=== PATIENT | male | born 1935 | race Hispanic/Latino ===

== ENCOUNTER 2016-08-28 10:20 | Inpatient (IN) | payer MEDICARE, BC ==
[2016-08-28 10:36] VITALS: BMI 28.0
--- NOTE | 2016-08-28 10:52 | ED PDOC ---
Arrival/HPI - General Chief Complaint: Weakness/Neurological Deficit Time Seen by Provider: 08/28/16 10:51 Historian: Patient, Family - History of Present Illness Narrative History of Present Illness (Text): 08/28/16 10:51 A 80 year old male, whose past medical history includes dementia, was brought into the emergency department by family complaining of generalized weakness for the past few days. notes a loss of appetite since yesterday. On evaluation , patient is alert and oriented to name only. states patients mental status is normal to baseline. Patient denies any fever, nausea, vomiting, diarrhea, abdominal pain, chest pain, shortness of breath, headache or any other complaints. PMD: Dr. Jerry Time/Duration: Other (few days) Symptom Course: Unchanged Quality: Other Context: Home Past Medical History - Provider Review Nursing Documentation Reviewed: Yes - Infectious Disease Hx of Infectious Diseases: None - Tetanus Immunization Tetanus Immunization: Up to Date - Cardiac Hx Cardiac Disorders: Yes - Pulmonary Hx Respiratory Disorders: No - Neurological Hx Neurological Disorder: Yes Hx Dementia: Yes Hx Seizures: Yes (NEW ONSET 03-09-16) Hx Transient Ischemic Attacks (TIA): Yes - HEENT Hx HEENT Disorder: Yes (LEFT EYE -DECREASED VISION. "HOLE IN RETINA"HAD SX) Hx Deafness: Yes (BILATERAL HEARING AIDES) - Renal Hx Renal Disorder: No - Endocrine/Metabolic Hx Endocrine Disorders: No - Hematological/Oncological Hx Blood Disorders: Yes Hx Cancer: Yes (COLON CA WITH COLON RESECTION NO RADIATION OR CHEMO) - Integumentary Hx Dermatological Disorder: No - Musculoskeletal/Rheumatological Hx Falls: Yes - Gastrointestinal Hx Gastrointestinal Disorders: Yes (COLON CA WITH COLON RESECTION) - Genitourinary/Gynecological Hx Genitourinary Disorders: No - Psychiatric Hx Psychophysiologic Disorder: Yes Hx Depression: Yes Hx Substance Use: No - Surgical History Other/Comment: colon resection, pacemaker insertion - Anesthesia Hx Anesthesia: Yes Hx Anesthesia Reactions: No Hx Malignant Hyperthermia: No - Suicidal Assessment Feels Threatened In Home Enviroment: No Family/Social History - Physician Review Nursing Documentation Reviewed: Yes Family/Social History: No Known Family HX Smoking Status: Former Smoker Hx Alcohol Use: No Hx Substance Use: No Hx Substance Use Treatment: No Allergies/Home Meds Allergies/Adverse Reactions: Allergies No Known Allergies Allergy (Verified 08/28/16 10:47) Home Medications: Home Meds Medication Instructions Recorded Confirmed Aspirin [Aspirin Chewable] 81 mg PO DAILY 01/02/15 05/19/16 Cholecalciferol (Vitamin D3) 1,000 iu PO DAILY 01/02/15 05/19/16 [Vitamin D3] Donepezil HCl 21 mg PO DAILY 01/02/15 05/19/16 Memantine HCl [Namenda] 28 mg PO DAILY 06/01/15 05/19/16 Lmfol Ca/Acetyl/Mb12/Algal Oil 1 tab PO DAILY 03/10/16 05/19/16 [Cerefolin Nac Caplet] Docusate [Colace] 100 mg PO DAILY 05/19/16 05/19/16 Vit C/Vit E/Lutein/Min/[place]-3 1 tab PO BID 05/19/16 05/19/16 [Ocuvite Softgel] levETIRAcetam [Keppra] 250 mg PO BID 05/19/16 05/19/16 Physical Exam - Physical Exam Narrative Physical Exam (Text): - Review of Systems Constitutional: (+) Generalized weakness absent: Weight Change, Fevers Eyes: Normal ENT: Normal Respiratory: Normal absent: SOB, Cough, Sputum Cardiovascular: Normal absent: Chest pain, Palpitations, Syncope Gastrointestinal: (+) Loss of appetite absent: Abdominal pain, Diarrhea, Nausea , Vomiting Genitourinary: Normal. absent: Dysuria, Frequency, Hematuria Musculoskeletal: Normal. absent: Arthralgias, Back Pain, Neck Pain Skin: Normal Neurological: Normal absent: Focal Weakness Endocrine: Normal Hemo/Lymphatic: Normal Psychiatric: Normal - Physical exam Patient appears age appropriate, speaking full sentences without difficulty - Systems Exam Head: Present: Atraumatic, Normocephalic Pupils: Present: PERRL Extraocular Muscles: Present: EOMI Conjunctiva: Present: Normal Mouth: Present: Moist Mucous Membranes Neck: Present: Normal Range of Motion. No: MIDLINE TENDERNESS, Paraspinal Tenderness Respiratory/Chest: Present: Clear to Auscultation, Good Air Exchange. No: Respiratory Distress, Accessory Muscle Use, Tachypneic Cardiovascular: Present: Regular Rate and Rhythm, Normal S1, S2, Peripheral Pulses Present. No: Murmurs Abdomen: Present: Normal Bowel Sounds, No: Tenderness, Peritoneal Signs, Rebound, Guarding, Distention Back: Present: Normal Inspection. No: Midline Tenderness, Paraspinal Tenderness Upper Extremity: Present: Normal Inspection. No: Cyanosis, Edema Lower Extremity: Present: Normal Inspection. No: Edema Neurological: Present: GCS=15, Speech Normal, cranial nerves II through XII fully intact with no cerebellar abnormality, neuro-sensory fully intact. No focal neurological deficits. Skin: Present: Warm, Dry, Normal Color. No: Rashes Lymphatic: Present: OX3, NI, NC Psychiatric: Present: Alert and oriented to name only Vital Signs Reviewed: Yes Vital Signs Temp Pulse Resp BP Pulse Ox 08/28/16 14:00 81 16 148/74 98 08/28/16 12:14 73 16 140/80 96 08/28/16 10:34 98.3 F 81 16 142/93 H 97 Temperature: Afebrile Blood Pressure: Hypertensive Pulse: Regular Respiratory Rate: Normal Appearance: Positive for: Well-Appearing, Non-Toxic, Comfortable Pain Distress: None Mental Status: No: Alert and Oriented X 3 (Alert and oriented to name only) Finger Stick Blood Glucose: 105 Medical Decision Making ED Course and Treatment: 08/28/16 10:51 Impression: A 80 year old male with generalized weakness and a loss of appetite. Patient has a history of dementia. He is alert and oriented to name only, which is normal to baseline. No acute findings on PE, no focal neurological deficits. Plan: -- Head CT -- Chest xray -- EKG -- Labs -- Blood and Urine culture -- Urinalysis -- IV fluids -- Reassess and disposition Progress Notes: EKG shows NSR at [address]-segment elevations, normal intervals. Interpreted by me. Report Date : 08/28/2016 11:57:09 PROCEDURE: CT HEAD WITHOUT CONTRAST. Dictator : Chirag Hines MD IMPRESSION: No intracranial mass, hemorrhage or evidence of acute infarct. Chronic microvascular ischemic change. 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 Report Date : 08/28/2016 12:12:15 Procedure: Chest xray Dictator : Chirag Hines MD IMPRESSION: Small left pleural effusion versus chronic pleural thickening. No infiltrate. Permanent pacemaker 08/28/16 16:12 Patient's urinalysis shows possible UTI. Leukocytosis 12,[address] Hopson, aware of and agrees with med/surg admission pt and family informed as well - Lab Interpretations Lab Results: 08/28/16 11:10 08/28/16 11:10 Lab Results 08/28/16 15:00: Urine Color Yellow, Urine Appearance Clear, Urine pH 6.0, Ur Specific Walsh 1.025, Urine Protein Trace H, Urine Glucose (UA) Negative, Urine Ketones >=80, Urine Blood Large H, Urine Nitrate Negative, Urine Bilirubin Small H, Urine Urobilinogen 1.0 H, Ur Leukocyte Esterase Negative, Urine RBC 20 - 25, Urine WBC 0 - 2, Ur Epithelial Cells 0 - 2, Amorphous Sediment Few, Urine Bacteria Mod 08/28/16 11:10: WBC 12.6 H D, RBC 5.08, Hgb 16.0, Hct 46.3, MCV 91.1, MCH 31.5, MCHC 34.6, RDW 12.8, Plt Count 143, MPV 8.6, Gran % 85.7 H, Lymph % (Auto) 7.0 L , [place] % (Auto) 7.1 H, Eos % (Auto) 0.1 L, Baso % (Auto) 0.1, Gran # 10.80 H, Lymph # 0.9 L, [place] # 0.9 H, Eos # 0.0, Baso # 0.01, PT 12.0 H, INR 1.11 H, APTT 27.8, Sodium 138, Potassium 4.3, Chloride 100, Carbon Dioxide 26, Anion Gap 16, BUN 20, Creatinine 1.1, Est GFR ( Amer) > 60, Est GFR (Non-Af Amer) > 60, Random Glucose 107, Calcium 9.7, Total Bilirubin 1.3, AST 25, ALT 12 , Alkaline Phosphatase 101, Lactate Dehydrogenase 438, Total Creatine Kinase 112 , Troponin I < 0.01, Total Protein 8.0, Albumin 4.2, Globulin 3.8, Albumin/ Globulin Ratio 1.1 I have reviewed the lab results: Yes - RAD Interpretation Radiology Orders: 08/28/16 10:57 HEAD W/O CONTRAST [CT] Stat 08/28/16 10:58 CHEST PORTABLE [RAD] Stat - Medication Orders Current Medication Orders: Discontinued Medications Sodium Chloride (Sodium Chloride 0.9%) 500 mls @ 1,000 mls/hr IV .Q30M STA Stop: 08/28/16 11:27 Last Admin: 08/28/16 11:18 Dose: 1,000 MLS/HR eMAR Start Stop Document 08/28/16 11:18 CARL (Rec: 08/28/16 11:19 CARL [id number]) Intravenous Solution Start Date 08/28/16 Start Time 11:18 End Date 08/28/16 End time 12:18 Total Infusion Time 60 Ceftriaxone Sodium (Rocephin 1 Gram Ivpb) 100 mls @ 200 mls/hr IV STAT STA PRN Reason: Protocol Stop: 08/28/16 16:08 - Scribe Statement The provider has reviewed the documentation as recorded by the Scribe Ann Young Provider Scribe Attestation: All medical record entries made by the Scribe were at my direction and personally dictated by me. I have reviewed the chart and agree that the record accurately reflects my personal performance of the history, physical exam, medical decision making, and the department course for this patient. I have also personally directed, reviewed, and agree with the discharge instructions and disposition. Disposition/Present on Arrival - Present on Arrival Any Indicators Present on Arrival: No History of DVT/PE: No History of Uncontrolled Diabetes: No Urinary Catheter: No History of Decub. Ulcer: No History Surgical Site Infection Following: None - Disposition Have Diagnosis and Disposition been Completed?: Yes Diagnosis: UTI (urinary tract infection) Disposition: HOSPITALIZED Disposition Time: 16:14 Patient Plan: Admission Condition: FAIR
[2016-08-28] MEDS ORDERED: Sodium Chloride 0.9% 500 ML IV STA (10:58)
[2016-08-28 11:31] LABS: ADD MANUAL DIFF? NO
[2016-08-28 11:42] LABS: BASO # 0.01 K/mm3 (0.0-2.0); BASO % 0.1 % (0.0-3.0); EOS % 0.1 % (1.5-5.0); GRAN % 85.7 % (50.0-68.0); HEMATOCRIT 46.3 % (42.0-52.0); LYMPH # 0.9 (1.2-3.4); MEAN CELL VOLUME 91.1 fL (80.0-105.0); MEAN CORPUSCULAR HEMOGLOBIN 31.5 pg (25.0-35.0); MEAN CORPUSCULAR HGB CONC 34.6 g/dl (31.0-37.0); MEAN PLATELET VOLUME 8.6 fl (7.0-11.0); MONO # 0.9 (0.1-0.6); MONO % 7.1 % (1.0-6.0); PLATELET COUNT 143 10^3/uL (120.0-450.0); RED CELL DISTRIBUTION WIDTH 12.8 % (11.5-14.5); WHITE BLOOD COUNT 12.6 10^3/ul (4.5-11.0)
[2016-08-28 11:47] LABS: ALB/GLOB RATIO 1.1 (1.1-1.8); ALKALINE PHOSPHATASE 101 U/L (38-133); ALT/SGPT 12 U/L (7-56); AST/SGOT 25 U/L (15-59); BILIRUBIN,TOTAL 1.3 mg/dL (0.2-1.3); BLOOD UREA NITROGEN 20 mg/dL (7-21); CALCIUM 9.7 mg/dL (8.4-10.5); CARBON DIOXIDE 26 mmol/L (21-33); CHLORIDE 100 mmol/L (98-107); GFR AFRICAN-AMERICAN > 60; GLUCOSE,RANDOM 107 mg/dL (70-110); POTASSIUM 4.3 mmol/L (3.6-5.0); SODIUM 138 mmol/L (132-148)
[2016-08-28 11:53] LABS: INR 1.11 (0.93-1.08); PARTIAL THROMBOPLASTIN TIME 27.8 Seconds (23.7-30.8)
--- NOTE | 2016-08-28 11:58 | CT ---
PROCEDURE: CT HEAD WITHOUT CONTRAST. HISTORY: MCGUIRE x2 weeks COMPARISON: 05/19/2016 TECHNIQUE: Axial computed tomography images were obtained through the head/brain without intravenous contrast. Radiation dose: Total exam DLP = 790.28 mGy-cm. FINDINGS: HEMORRHAGE: No intracranial hemorrhage. BRAIN: No mass effect or edema. Mild age-appropriate diffuse cerebral atrophy. Old bilateral basal ganglia lacunar infarcts. Old left thalamic lacunar infarct. Periventricular and patchy and confluent deep white matter lucency consistent with age-related microvascular ischemic change. VENTRICLES: Unremarkable. No hydrocephalus. CALVARIUM: Unremarkable. PARANASAL SINUSES: Unremarkable as visualized. No significant inflammatory changes. MASTOID AIR CELLS: Unremarkable as visualized. No inflammatory changes. OTHER FINDINGS: None. IMPRESSION: No intracranial mass, hemorrhage or evidence of acute infarct. Chronic microvascular ischemic change. 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
[2016-08-28 12:03] LABS: TROPONIN I < 0.01 ng/mL
--- NOTE | 2016-08-28 12:14 | RAD ---
HISTORY: cough COMPARISON: 05/19/2026 FINDINGS: LUNGS: No active pulmonary disease. PLEURA: Small left pleural effusion versus pleural thickening. Right costophrenic angle clear. CARDIOVASCULAR: Normal heart size. Permanent pacemaker. No congestive change. OSSEOUS STRUCTURES: No significant abnormalities. VISUALIZED UPPER ABDOMEN: Normal. OTHER FINDINGS: None. IMPRESSION: Small left pleural effusion versus chronic pleural thickening. No infiltrate. Permanent pacemaker
--- NOTE | 2016-08-28 12:40 | CARD ---
APPROVED REPORT EKG Measurement Heart [id number] <Conclusion> Normal sinus rhythm Normal ECG
[2016-08-28 15:18] LABS: URINE BILIRUBIN SMALL (NEGATIVE); URINE BLOOD LARGE (NEGATIVE); URINE GLUCOSE (UA) NEGATIVE (NEGATIVE); URINE KETONE >=80 mg/dL (NEGATIVE); URINE LEUKOCYTE ESTERASE NEGATIVE Leu/uL (NEGATIVE); URINE PROTEIN TRACE mg/dL (<30 mg/dL)
[2016-08-28 15:21] LABS: URINE APPEARANCE CLEAR (CLEAR); URINE COLOR YELLOW (YELLOW)
[2016-08-28 15:34] LABS: URINE AMORPHOUS SEDIMENT FEW; URINE BACTERIA MOD (NEG); URINE EPITHELIAL CELLS 0 - 2 /hpf (0-5); URINE RBC 20 - 25 /hpf (0-2); URINE WBC 0 - 2 /hpf (0-6)
[2016-08-28] MEDS ORDERED: cefTRIAXone 1 gm 100 ML IV STA (15:39)
[2016-08-29 08:15] LABS: ADD MANUAL DIFF? NO
[2016-08-29 08:17] LABS: BASO # 0.02 K/mm3 (0.0-2.0); BASO % 0.2 % (0.0-3.0); EOS # 0.1 (0.0-0.7); EOS % 1.1 % (1.5-5.0); GRAN # 5.79 (1.4-6.5); GRAN % 67.9 % (50.0-68.0); HEMATOCRIT 42.7 % (42.0-52.0); LYMPH # 1.5 (1.2-3.4); LYMPH % 17.8 % (22.0-35.0); MEAN CORPUSCULAR HEMOGLOBIN 31.1 pg (25.0-35.0); MEAN CORPUSCULAR HGB CONC 34.2 g/dl (31.0-37.0); MEAN PLATELET VOLUME 8.6 fl (7.0-11.0); MONO # 1.1 (0.1-0.6); PLATELET COUNT 133 10^3/uL (120.0-450.0); WHITE BLOOD COUNT 8.5 10^3/ul (4.5-11.0)
[2016-08-29] MEDS ORDERED: cefTRIAXone 1 gm 100 ML IVPB SCH (10:00)
--- NOTE | 2016-08-29 16:25 | CP.PCM.CON ---
History of Present Illness - History of Present Illness History of Present Illness: 80 year old male with PMH of dementia, S/P pacemaker placement, history of seizures, colon cancer S/P colonic resection, history of depression was brought in to [facility] because of decreased appetite and generalized weakness for 1-2 days. There was no note of fever or chills, no headache, no convulsions. The patient denies dysuria or hematuria, no chest pain, no SOB, no cough or rhinorrhea, abdominal pain, no dysuria. When the patient was seen in the ER, they thought the patient had some confusion, but the said he occasionally does have some confusion related to his dementia. Infectious Diseases consult is requested to further evaluate and manage. Currently the patient is comfortable in bed, not in distress. Review of Systems - Review of Systems All systems: reviewed and no additional remarkable complaints except (as per HPI ) Past Patient History - Infectious Disease Hx of Infectious Diseases: None - Tetanus Immunizations Tetanus Immunization: Up to Date - Past Medical History & Family History Past Medical History?: Yes Past Family History: Reviewed and not pertinent - Past Social History Smoking Status: Never Smoked Alcohol: None Drugs: Denies - CARDIAC Hx Cardiac Disorders: Yes Hx Pacemaker: Yes - PULMONARY Hx Respiratory Disorders: No - NEUROLOGICAL Hx Neurological Disorder: Yes Hx Dementia: Yes Hx Seizures: Yes (NEW ONSET 03-09-16) Hx Transient Ischemic Attacks (TIA): Yes - HEENT Hx HEENT Problems: Yes (LEFT EYE -DECREASED VISION. "HOLE IN RETINA"HAD SX) Hx Deafness: Yes (BILATERAL HEARING AIDES) - RENAL Hx Chronic Kidney Disease: No - ENDOCRINE/METABOLIC Hx Endocrine Disorders: No - HEMATOLOGICAL/ONCOLOGICAL Hx Blood Disorders: Yes Hx Cancer: Yes (COLON CA WITH COLON RESECTION NO RADIATION OR CHEMO) - INTEGUMENTARY Hx Dermatological Problems: No - MUSCULOSKELETAL/RHEUMATOLOGICAL Hx Falls: Yes - GASTROINTESTINAL Hx Gastrointestinal Disorders: Yes (COLON CA WITH COLON RESECTION) - GENITOURINARY/GYNECOLOGICAL Hx Genitourinary Disorders: No - PSYCHIATRIC Hx Psychophysiologic Disorder: Yes Hx Depression: Yes - SURGICAL HISTORY Hx Surgeries: Yes Other/Comment: colon resection, pacemaker insertion - ANESTHESIA Hx Anesthesia: Yes Hx Anesthesia Reactions: No Hx Malignant Hyperthermia: No Meds Allergies/Adverse Reactions: Allergies Allergy/AdvReac Type Severity Reaction Status Date / Time No Known Allergies Allergy Verified 08/28/16 10:47 Physical Exam - Constitutional Appears: Non-toxic, No Acute Distress - Head Exam Head Exam: NORMAL INSPECTION - ENT Exam ENT Exam: Mucous Membranes Moist - Neck Exam Neck exam: Negative for: Lymphadenopathy, Meningismus - Respiratory Exam Respiratory Exam: Decreased Breath Sounds - Cardiovascular Exam Cardiovascular Exam: +S1, +S2 - GI/Abdominal Exam GI & Abdominal Exam: Soft. absent: Tenderness Results - Vital Signs Recent Vital Signs: Last Vital Signs Temp 98.5 F 08/28/16 20:00 Pulse 70 08/28/16 20:00 Resp 16 08/28/16 20:00 BP 143/80 08/28/16 20:00 Pulse Ox 96 08/28/16 18:15 - Labs Result Diagrams: 08/29/16 08:13 08/28/16 11:10 Assessment & Plan - Assessment and Plan (Free Text) Plan: Assessment Systemic Inflammatory Response Syndrome, so far no evidence of systemic infection dementia S/P pacemaker placement history of seizures, colon cancer S/P colonic resection history of depression Plan Patient was given a dose of Rocephin; blood and urine cx are negative, PCT is less than 0.5 - will monitor off antibiotics Will follow clinically
--- NOTE | 2016-08-29 21:47 | HP ---
CHIEF COMPLAINT AND HISTORY OF PRESENT ILLNESS: This is a 80-year-old male who is coming into the [facility] with complaints of weakness and falling. The patient had falls at home. He had developed a l aceration on the right side of his cheek, according to the patient's . The patient was not able to give much information, but the patient's was updating me about his situation at home. The pa tient is alert and oriented. The patient says that he had a slight fall, but it is no big deal. He denied chest pain. He has been unsteady on his feet. He has no complaints of any headaches or dizzi ness, no nausea, no abdominal pain or back pain, no dysuria or frequency, no nocturia. He has not be en eating well. All other review of symptoms are within normal limits except as mentioned. ALLERGIES: No known drug allergies. PAST MEDICAL HISTORY: 1. Hearing impairment, visual impairment, seizures, colon CA with resection. 2. Dementia. 3. Depression. SOCIAL HISTORY: Denies smoking, drinking alcohol. FAMILY HISTORY: Noncontributory. VITALS: He has a temperature of 97.5, pulse of 64, blood pressure is 117/74, respiration is 18, O2 s aturation is 95%. GENERAL: Patient lying in bed, flat, and in no apparent distress. HEAD AND NECK EXAM: Atraumatic, normocephalic. Conjunctivae are pink. Throat clear and mouth with moist mucosa. Oropharynx benign. EYES: Extraocular movements are intact. PERRLA. NECK: Supple. No JVD, thyromegaly, or adenopathy. No bruits. HEART: S1 and S2 regular rate and rhythm. No murmurs, rubs, or gallops. LUNGS: Clear to auscultation bilaterally. No wheezing rales or rhonchi appreciated. No retraction s on exam. ABDOMEN: Soft, nontender, nondistended. Bowel sounds are positive in all quadrants. No rebound. No hepatosplenomegaly. EXTREMITIES: No cyanosis, clubbing, or edema. NEURO: No facial asymmetry, tongue is midline, no uvula deviation. Power is 5/5 in upper extremity and 5/5 in lower extremity. Sensation is normal in upper extremity and lower extremity. PSYCHIATRIC: Awake, alert, oriented x 2. No anxiety or depression symptoms. Good insight. Normal affect. : No CVA tenderness VASCULAR: 2+ pulses in carotid and pedal pulses. SKIN: No erythema or abnormal nodules noted. SPINE: Normal curvature. LYMPHADENOPATHY: No anterior cervical or posterior cervical adenopathy. No inguinal adenopathy. LABORATORIES: White count of 12.6, hemoglobin 16, platelet count is 143. INR is 1.1. Chemistry felipe ws a sodium 138, potassium is 4.3. Procalcitonin is 0.14. AST, ALT is 25 and 12. Urine shows blood that is large, bilirubin is small, esterase is negative. Urine cultures and blood cultures are nega tive. He had an EKG done shows sinus rhythm at 87 with a QTc of 450. No ST-T changes. CT of the head done shows no intracranial mass, hemorrhage, or evidence of acute infarct. There is a n old bilateral basal ganglia and left thalamic lacunar infarct. Chest x-ray done shows small left pleural effusion with chronicle pleural thickening, no infiltrates. ASSESSMENT: 1. Falls. 2. Pacemaker. 3. History of colon cancer with resection. 4. Seizure disorder on Keppra. 5. Dementia, vascular type. 6. Gait dysfunction. 7. Hematuria. PLAN: The patient is currently admitted to the hospital. He has cultures that are negative. The pa haim is unsteady on his feet, and already has a laceration on the right side of his cheek that is ab out 5-6 cm. It is unsafe for him to go home. The patient will most likely need physical therapy. I did speak to the patient's to give her an update on the patient's diagnosis and plan of care. Physical therapy evaluation has been placed. He will continue his Keppra. He is on Colace for const ipation. He is on Aricept for his dementia. The patient is on a heart-healthy diet. His white coun t is back to normal. He does have hematuria. I will order a renal ultrasound to evaluate his hematu zia. Kenji Francis MD cc: [id number] TT: 08/29/2016 21:46:38 katharine
--- NOTE | 2016-08-30 08:32 | PN ---
DATE: 08/30/2016 SUBJECTIVE: The patient has no complaints of any chest pain or shortness of breath, no headaches. PHYSICAL EXAMINATION: VITAL SIGNS: Temperature is 97.5, pulse of 64, blood pressure 117/74, respirations 18. GENERAL: The patient comfortable, in no acute distress. HEENT: Anicteric sclerae. Moist mucosa. NECK: No JVD or adenopathy. CARDIAC: S1/S2. No murmurs. No rubs. Regular. RESPIRATORY: Clear to auscultation bilaterally. No wheezes, rales, or rhonchi. Good air entry. ABDOMEN: Bowel sounds are positive, soft, nontender, and nondistended. EXTREMITIES: No edema. Has 1+ pulses. LABORATORY DATA: White count of 8.5, hemoglobin is 14.6, creatinine is 1.1. ASSESSMENT: 1. Fall. 2. Hearing impairment. 3. Pacemaker. 4. Status post colon cancer with resection. 5. Seizure disorder on Keppra. 6. Dementia, vascular type. 7. Gait dysfunction. 8. Hematuria. PLAN: The patient is currently comfortable. I will get Dr. Banda to see the patient. The patient is on Keppra for seizures. He had a renal ultrasound because of hematuria that the patient had. He is on vitamin D, has dementia, most likely vascular type. I did speak to the patient's yesterda y to give her an update on the patient's diagnosis and plan of care. Kenji Francis MD cc: [id number] TT: 08/30/2016 08:32:15 Confirmation # [id number] Dictation # [id number] jn
--- NOTE | 2016-08-30 12:05 | CON ---
DATE: 08/30/2016 REQUESTING PHYSICIAN: Kenji Francis MD. REASON FOR CONSULTATION: Possible syncope, fall at home. HISTORY: This is a 80-year-old man known to us from outpatient followup, who was admitted after a fa ll at home. He was brought to the Emergency Room and admitted. The patient is seen lying on a stret carly in the ultrasound department. He states that he simply lost his balance while going to the bath room and struck his head on a piece of furniture. He developed a small laceration on his cheek. His family became concerned and brought him to the Emergency Room. He has had multiple admissions in the recent past for apparent TIAs and possible seizures. He appare ntly has progressive baseline dementia. He does have a history of sick sinus syndrome and underwent permanent pacemaker implant in the past. He states that he recalls the details of the event and nicky es any loss of consciousness. He is unaware of any palpitations prior to falling. PAST HISTORY: Is notable for the problems mentioned above. He has had multiple admissions for simil ar problems in the past. He has a history of macular degeneration and prior colon cancer resection. CURRENT MEDICATIONS: Include Aricept 20 mg daily, aspirin, Colace, Keppra 250 mg b.i.d., and vitamin D supplements. ALLERGIES: None. SOCIAL HISTORY: He is retired. 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 He is [facility] and lives with his . FAMILY HISTORY: Both parents are from age-related illness. REVIEW OF SYSTEMS: A 10-point review of systems was unremarkable. PHYSICAL EXAMINATION: GENERAL: He is an elderly man who appears comfortable at rest. VITAL SIGNS: His blood pressure is 130/78 with a pulse of 60. Respirations are 16. He is afebrile. HEENT: A small laceration is noted under his right maxilla. Mild ecchymosis is present. NECK: No JVD. CHEST: A few scattered rhonchi are heard. HEART: PMI in normal position, a soft systolic murmur present at the left sternal border. ABDOMEN: Soft and nontender, normoactive bowel sounds. EXTREMITIES: No clubbing, cyanosis, or edema. SKIN: Warm and dry. PSYCHIATRIC: Normal mood and affect. NEUROLOGIC: He is currently oriented to person, place, and year. No gross motor or sensory deficits appreciable. DIAGNOSTIC DATA: Chest x-ray reveals normal cardiac silhouette with clear lung ibarra, and a pacemak er system in place. Electrocardiogram reveals sinus rhythm with nonspecific ST-T abnormalities. Blood work reveals a white count of 8.5, hemoglobin and hematocrit 14.6 and 42.7 with a platelet coun t 133,000. PT and PTT are normal. Potassium 4.3. BUN and creatinine are 20 and 1.1. Troponin is n egative. Procalcitonin is 0.14. IMPRESSION: 1. Status post fall at home. By his report, no true syncope. However, given his history, his repor t may be somewhat unreliable. 2. History of sick sinus syndrome, status post permanent pacemaker implant. Appears stable at prese nt. 3. History of dementia. 4. The rest of problems as noted. RECOMMENDATIONS: A 24-hour observation would be reasonable. Old records will be reviewed. If his p acemaker has not been recently interrogated, this can be arranged. In general, conservative manageme nt appears most reasonable at this time. Thank you for this consultation. I am happy to follow along through his hospital course. River Michel MD cc: [id number] TT: 08/30/2016 12:05:21 Confirmation # [id number] Dictation # [id number] katharine
--- NOTE | 2016-08-30 12:24 | US ---
PROCEDURE: Ultrasound of the Kidneys HISTORY: hematuria COMPARISON: None available. TECHNIQUE: Sonogram of the kidneys. FINDINGS: RIGHT KIDNEY: Measures: 11.5 x 5.5 x 7.6 cm. A large exophytic cyst off the medial border of the upper pole the right kidney is suggested - 17 x 10 x 11 cm -is the estimate. A smaller right upper renal pole cyst measuring approximately 2 cm rounded diameter is present. No stone, solid mass lesion or hydronephrosis visualized. LEFT KIDNEY: Measures: 10 x 6 x 5 cm. Normal in size, contour and echogenicity. No stone, solid mass lesion or hydronephrosis visualized. Lower pole cyst measuring 1.3 cm surrounded diameter OTHER FINDINGS: None. IMPRESSION: Bilateral renal cysts in the largest is exophytic off the medial right upper renal pole
--- NOTE | 2016-08-30 16:16 | CP.PCM.PN ---
Subjective - Date & Time of Evaluation Date of Evaluation: 08/30/16 Time of Evaluation: 15:05 - Subjective Subjective: Comfortable on a chair, no fevers overnight, not in distress. Objective - Vital Signs/Intake and Output Vital Signs (last 24 hours): Temp Pulse Resp BP Pulse Ox 97.4 F L 59 L 20 132/78 97 08/30/16 09:09 08/30/16 09:09 08/30/16 09:09 08/30/16 09:09 08/30/16 09:09 Intake and Output: 08/30/16 08/30/16 06:59 18:59 Intake Total 540 Output Total 400 Balance 140 - Medications Medications: Current Medications Aspirin (Aspirin Chewable) 81 mg PO DAILY [facility] Last Admin: 08/30/16 10:27 Dose: 81 mg Cholecalciferol (Vitamin D) 1,000 iu PO DAILY [facility] Last Admin: 08/30/16 10:27 Dose: 1,000 iu Docusate Sodium (Colace) 100 mg PO DAILY [facility] Last Admin: 08/30/16 10:26 Dose: 100 mg Donepezil HCl (Aricept) 20 mg PO DAILY [facility] Last Admin: 08/30/16 10:27 Dose: 20 mg Levetiracetam (Keppra) 250 mg PO BID [facility] Last Admin: 08/30/16 10:27 Dose: 250 mg - Labs Labs: 08/29/16 08:13 PT 12.0 Seconds (9.9-11.8) H 08/28/16 11:10 INR 1.11 (0.93-1.08) H 08/28/16 11:10 APTT 27.8 Seconds (23.7-30.8) 08/28/16 11:10 - Constitutional Appears: Non-toxic, No Acute Distress - Head Exam Head Exam: NORMAL INSPECTION - Neck Exam Neck Exam: absent: Lymphadenopathy, Meningismus - Respiratory Exam Respiratory Exam: Decreased Breath Sounds - Cardiovascular Exam Cardiovascular Exam: +S1, +S2 - GI/Abdominal Exam GI & Abdominal Exam: Soft. absent: Tenderness Assessment and Plan - Assessment and Plan (Free Text) Plan: Assessment Systemic Inflammatory Response Syndrome, so far no evidence of systemic infection dementia S/P pacemaker placement history of seizures, colon cancer S/P colonic resection history of depression Plan Patient was given a dose of Rocephin; blood and urine cx are negative, PCT is less than 0.5 - will continue to monitor off antibiotics Will follow clinically
[2016-08-30 17:42] VITALS: RESP 18; O2SAT 94
--- NOTE | 2016-08-31 08:41 | CP.PCM.PN ---
Subjective - Date & Time of Evaluation Date of Evaluation: 08/31/16 Time of Evaluation: 08:00 - Subjective Subjective: Stable on 3R. No CP or SOB. He did not recognize me from [facility] f/u. His dementia has progressed since I last saw him. V/S noted PE: Lungs: clear Cor.: S1S2 Abd.: soft Ext.: no edema Neuro.: alert, dementia BC X2 NG at 48 hrs. Objective - Vital Signs/Intake and Output Vital Signs (last 24 hours): Temp Pulse Resp BP Pulse Ox 97.4 F L 69 18 147/86 94 L 08/30/16 16:00 08/30/16 16:00 08/30/16 16:00 08/30/16 16:00 08/30/16 16:00 Intake and Output: 08/31/16 08/31/16 06:59 18:59 Intake Total 660 Balance 660 - Medications Medications: Current Medications Aspirin (Aspirin Chewable) 81 mg PO DAILY [facility] Last Admin: 08/30/16 10:27 Dose: 81 mg Cholecalciferol (Vitamin D) 1,000 iu PO DAILY [facility] Last Admin: 08/30/16 10:27 Dose: 1,000 iu Docusate Sodium (Colace) 100 mg PO DAILY [facility] Last Admin: 08/30/16 10:26 Dose: 100 mg Donepezil HCl (Aricept) 20 mg PO DAILY [facility] Last Admin: 08/30/16 10:27 Dose: 20 mg Levetiracetam (Keppra) 250 mg PO BID [facility] Last Admin: 08/30/16 17:40 Dose: 250 mg - Labs Labs: 08/29/16 08:13 PT 12.0 Seconds (9.9-11.8) H 08/28/16 11:10 INR 1.11 (0.93-1.08) H 08/28/16 11:10 APTT 27.8 Seconds (23.7-30.8) 08/28/16 11:10 Assessment and Plan - Assessment and Plan (Free Text) Plan: Assessment: Fall at home, uncertain details Dementia, progressive SSS/PPM TIA Siezure Disorder Macular Degeneration Plan: As per neuro., ID and Dr. Francis Home soon with continuous supervision Pacemaker F/U as scheduled High Fall Risk.
[2016-08-31 08:49] VITALS: BP 156/87; PULSE 64; TEMP 97.6
--- NOTE | 2016-08-31 12:25 | DS ---
SUBJECTIVE: The patient was initially admitted to the hospital because he was having falls. He is w aiting to go to subacute rehab. He has no complaints of any chest pain, no shortness of breath, no h eadaches. PHYSICAL EXAMINATION: VITAL SIGNS: Temperature is 97.4, pulse of 69, blood pressure 147/86, respirations 18. GENERAL: The patient comfortable, in no acute distress. HEENT: Anicteric sclerae. Moist mucosa. NECK: No JVD or adenopathy. CARDIAC: S1/S2. No murmurs. No rubs. Regular. RESPIRATORY: Clear to auscultation bilaterally. No wheezes, rales, or rhonchi. Good air entry. ABDOMEN: Bowel sounds are positive, soft, nontender, and nondistended. EXTREMITIES: No edema. Has 1+ pulses. LABORATORY DATA: A renal ultrasound done showed bilateral renal cysts. ASSESSMENT: 1. Fall. 2. Hearing impairment. 3. Pacemaker. 4. Bilateral renal cysts. 5. Dementia, vascular type. 6. Seizure disorder, on Keppra. 7. Gait dysfunction. 8. Hematuria. 9. Status post colon cancer with resection. PLAN: The patient is currently comfortable. He has blood cultures and urine cultures that have been negative. The patient is being followed by cardiology and ID. He is not on any antibiotics at this point. The patient will be discharged to a subacute rehabilitation facility. The patient is on Kep pra for seizures. He is on vitamin D. He is on Aricept for his dementia. He is on a heart healthy diet. Kenji Francis MD cc: [id number] TT: 08/31/2016 12:24:57 or
== END 2016-08-31 15:23 | DRG 884 ==
LOC: ED 10:20 → ERH 16:15 → 5RNO 18:48
PROVIDERS: ADMIT Internal Medicine Nephrology; ATTEND Internal Medicine Nephrology
DX: F01.50 Vascular dementia, unspecified severity, without behavioral disturbance, psychotic disturbance, mood disturbance, and anxiety (principal); R65.10 Systemic inflammatory response syndrome (SIRS) of non-infectious origin without acute organ dysfunction; G40.909 Epilepsy, unspecified, not intractable, without status epilepticus; N28.1 Cyst of kidney, acquired; H35.30 Unspecified macular degeneration; S01.411A Laceration without foreign body of right cheek and temporomandibular area, initial encounter; W19.XXXA Unspecified fall, initial encounter; Z85.038 Personal history of other malignant neoplasm of large intestine; H54.7 Unspecified visual loss; R31.9 Hematuria, unspecified; H91.93 Unspecified hearing loss, bilateral; R40.2412 Glasgow coma scale score 13-15, at arrival to emergency department; F32.89 Other specified depressive episodes; R26.81 Unsteadiness on feet; R01.1 Cardiac murmur, unspecified; Z90.49 Acquired absence of other specified parts of digestive tract; Z87.891 Personal history of nicotine dependence; Z79.899 Other long term (current) drug therapy; Z95.0 Presence of cardiac pacemaker; Z86.73 Personal history of transient ischemic attack (TIA), and cerebral infarction without residual deficits; Y92.009 Unspecified place in unspecified non-institutional (private) residence as the place of occurrence of the external cause

== ENCOUNTER 2018-07-14 19:02 | Inpatient (IN) | payer MEDICARE, BC ==
[2018-07-14 19:26] VITALS: BMI 25.0
--- NOTE | 2018-07-14 20:04 | ED PDOC ---
Arrival/HPI - General Chief Complaint: Weakness/Neurological Deficit Historian: Patient, Family - History of Present Illness Narrative History of Present Illness (Text): 07/14/18 19:50 82 year old male, whose past medical history includes dementia presents to the emergency department accompanied by family for generalized weakness for the past couple of days. As per family, patient has not been eating and states they have to force feed him. Patient denies any other symptoms at present time. Also reports Dr. Jerry did a house call reporting possibly a UTI, but results came back as blood in urine. Patient denies any fever, chills, chest pain, shortness of breath, nausea, vomiting, diarrhea, urinary symptoms, back pain, neck pain, headache, dizziness, or any other complaints. PMD: Dr. Jerry Time/Duration: Other (couple days) Symptom Onset: Gradual Symptom Course: Unchanged Activities at Onset: Light Context: Home Past Medical History - Provider Review Nursing Documentation Reviewed: Yes - Infectious Disease Hx of Infectious Diseases: None - Tetanus Immunization Tetanus Immunization: Up to Date - Cardiac Hx Cardiac Disorders: Yes (Pacemaker) - Pulmonary Hx Respiratory Disorders: No - Neurological HX Cerebrovascular Accident: Yes (TIA) - HEENT Hx HEENT Disorder: Yes (LEFT EYE -DECREASED VISION. "HOLE IN RETINA"HAD SX) Hx Deafness: Yes (BILATERAL HEARING AIDES) - Renal Hx Renal Disorder: No - Endocrine/Metabolic Hx Endocrine Disorders: No - Hematological/Oncological Hx Blood Disorders: Yes Hx Cancer: Yes (COLON CA WITH COLON RESECTION NO RADIATION OR CHEMO) - Integumentary Hx Dermatological Disorder: No - Musculoskeletal/Rheumatological Hx Falls: Yes - Gastrointestinal Hx Gastrointestinal Disorders: Yes (COLON CA WITH COLON RESECTION) - Genitourinary/Gynecological Hx Genitourinary Disorders: No - Psychiatric Hx Psychophysiologic Disorder: Yes Hx Depression: Yes Hx Substance Use: No - Surgical History Other/Comment: colon resection, pacemaker insertion - Anesthesia Hx Anesthesia: Yes Hx Anesthesia Reactions: No Hx Malignant Hyperthermia: No - Suicidal Assessment Feels Threatened In Home Enviroment: No Family/Social History - Physician Review Nursing Documentation Reviewed: Yes Family/Social History: No Known Family HX Smoking Status: Never Smoked Hx Alcohol Use: No Hx Substance Use: No Hx Substance Use Treatment: No Allergies/Home Meds Allergies/Adverse Reactions: Allergies No Known Allergies Allergy (Verified 08/28/16 10:47) Home Medications: Home Meds Medication Instructions Recorded Confirmed Aspirin [Aspirin Chewable] 81 mg PO DAILY 01/02/15 07/14/18 Cholecalciferol (Vitamin D3) 1,000 iu PO DAILY 01/02/15 07/14/18 [Vitamin D3] Donepezil HCl 21 mg PO DAILY 01/02/15 07/14/18 Memantine HCl [Namenda] 28 mg PO DAILY 06/01/15 07/14/18 l-Mefol/A-Cyst/Meb12/Algal Oil 1 tab PO DAILY 03/10/16 07/14/18 [Cerefolin Nac Caplet] Docusate [Colace] 100 mg PO DAILY 05/19/16 07/14/18 Vit C/Vit E/Lutein/Min/Cathay-3 1 tab PO BID 05/19/16 07/14/18 [Ocuvite Softgel] levETIRAcetam [Keppra] 250 mg PO BID 05/19/16 07/14/18 Review of Systems - Physician Review All systems were reviewed & negative as marked: Yes - Review of Systems Constitutional: absent: Fevers, Other (chills) Respiratory: absent: SOB Cardiovascular: absent: Chest Pain Gastrointestinal: absent: Diarrhea, Nausea, Vomiting Genitourinary Male: absent: Dysuria, Frequency, Hematuria Musculoskeletal: absent: Back Pain, Neck Pain Neurological: Other (generalized weakness). absent: Headache, Dizziness Physical Exam Vital Signs Reviewed: Yes Vital Signs Temp Pulse Resp BP Pulse Ox 07/14/18 19:27 98.4 F 07/14/18 19:26 90 18 116/57 L 90 L Temperature: Afebrile Blood Pressure: Normal Pulse: Regular Respiratory Rate: Normal Appearance: Positive for: Well-Appearing, Non-Toxic, Comfortable Pain Distress: None Mental Status: Positive for: Alert and Oriented X 3 - Systems Exam Head: Present: Atraumatic, Normocephalic Pupils: Present: PERRL Extroacular Muscles: Present: EOMI Conjunctiva: Present: Normal Mouth: Present: Moist Mucous Membranes Neck: Present: Normal Range of Motion Respiratory/Chest: Present: Clear to Auscultation, Good Air Exchange. No: Respiratory Distress, Accessory Muscle Use Cardiovascular: Present: Regular Rate and Rhythm, Normal S1, S2. No: Murmurs Abdomen: No: Tenderness, Distention, Peritoneal Signs Back: Present: Normal Inspection Upper Extremity: Present: Normal Inspection. No: Cyanosis, Edema Lower Extremity: Present: Normal Inspection. No: Edema Neurological: Present: GCS=15, CN II-XII Intact, Speech Normal Skin: Present: Warm, Dry, Normal Color. No: Rashes Psychiatric: Present: Alert, Oriented x 3, Normal Insight, Normal Concentration Medical Decision Making ED Course and Treatment: 07/14/18 19:50 Impression: 82 year old male presents for generalized weakness and appetite changes for the past couple of days. Plan: -- VBG -- Head CT w/o contrast -- Labs -- EKG -- Chest X-ray -- IV Fluids -- Blood Culture, Urine Culture -- Urinalysis -- Reassess and disposition Prior Visits: Notes and results from previous visits were reviewed. Progress Notes: Reviewed EKG, NSR at 88 bpm. Inferior infarct. Non-specific ST/T wave changes. 07/14/18 21:49 Reviewed radiology, Chest X-ray shows no acute processes. CT Head: BRAIN Numerous small bilateral cerebral and cerebellar old lacunar infarcts, the largest ones including in the anterior limb of the left internal capsule and left cerebellum, are seen. The 1 in the left anterior limb of the internal capsule measures 1.2 cm. The 1 in the left paramedian left cerebellar region measures 2 cm. Extensive periventricular small vessel disease and age appropriate atrophy is n oted. VENTRICLES: No hydrocephalus. ORBITS: The orbits are unremarkable. SINUSES AND MASTOIDS: The paranasal sinuses and mastoid air cells are clear. BONES: No fracture. SOFT TISSUES: Unremarkable. MISCELLANEOUS: IMPRESSION: No acute intracranial pathology is seen. Numerous bilateral cerebral and cerebellar old lacunar infarcts are seen as above. Extensive periventricular small vessel disease and age appropriate atrophy is noted. Electronically signed on Jul 14, 2018 9:38:08 PM EST by: Dennis Cruz M.D., MACIEJ Certified By [facility] [employer] [facility] Fellowship Trained MRI and CT Specialist 07/14/18 22:[address] Francis, who is aware and agrees with plan. Accepts pt in to his service. Pt will be admitted to [facility] for weakness and UTI. - Lab Interpretations I have reviewed the lab results: Yes - RAD Interpretation Radiology Orders: 07/14/18 19:51 HEAD W/O CONTRAST [CT] Stat 07/14/18 19:53 CHEST TWO VIEWS (PA/LAT) [RAD] Stat Model Maker Plaster: ED Physician, Radiologist - EKG Interpretation Interpreted by ED Physician: Yes Type: 12 lead EKG - Medication Orders Current Medication Orders: Sodium Chloride (Sodium Chloride 0.9%) 1,000 mls @ 80 mls/hr IV .[id number] SAMIR - Scribe Statement The provider has reviewed the documentation as recorded by the Jer Valentino Provider Scribe Attestation: All medical record entries made by the Sultanaibnimesh were at my direction and personally dictated by me. I have reviewed the chart and agree that the record accurately reflects my personal performance of the history, physical exam, medical decision making, and the department course for this patient. I have also personally directed, reviewed, and agree with the discharge instructions and disposition. Disposition/Present on Arrival - Present on Arrival Any Indicators Present on Arrival: No History of DVT/PE: No History of Uncontrolled Diabetes: No Urinary Catheter: No History of Decub. Ulcer: No History Surgical Site Infection Following: CABG - Mediastinitis, None - Disposition Have Diagnosis and Disposition been Completed?: Yes Diagnosis: UTI (urinary tract infection) Disposition: HOSPITALIZED Disposition Time: 22:00 Condition: FAIR
[2018-07-14 20:45] LABS: BASO # 0.02 K/mm3 (0.0-2.0); BASO % 0.2 % (0.0-3.0); EOS # 0.1 (0.0-0.7); EOS % 0.7 % (1.5-5.0); HEMOGLOBIN 15.3 g/dL (14.0-18.0); LYMPH # 1.4 (1.2-3.4); LYMPH % 13.7 % (22.0-35.0); MEAN CELL VOLUME 90.6 fl (80.0-105.0); MEAN CORPUSCULAR HEMOGLOBIN 30.6 pg (25.0-35.0); MEAN CORPUSCULAR HGB CONC 33.8 g/dl (31.0-37.0); MEAN PLATELET VOLUME 8.5 fl (7.0-11.0); MONO % 9.4 % (1.0-6.0); RED CELL DISTRIBUTION WIDTH 13.1 % (11.5-14.5); WHITE BLOOD COUNT 10.4 10^3/uL (4.5-11.0)
[2018-07-14 20:45] LABS: VENOUS BLOOD GAS BASE EXCESS -1.8 mmol/L (0.0-2.0); VENOUS BLOOD GAS PO2 97 mm/Hg (30-55); VENOUS BLOOD PH 7.36 (7.32-7.43)
[2018-07-14 20:54] LABS: ALB/GLOB RATIO 1.1 (1.1-1.8); AST/SGOT 20 U/L (17-59); BLOOD UREA NITROGEN 45 mg/dL (7-21); GFR NON-AFRICAN AMERICAN 29; INR 1.32; PARTIAL THROMBOPLASTIN TIME 30.1 Seconds (26.9-38.3); PROTHROMBIN TIME 14.7 SECONDS (9.4-12.5)
[2018-07-14] MEDS: Sodium Chloride 0.9% 1,000 ML IV SCH (20:57)
[2018-07-14 20:59] LABS: URINE BILIRUBIN SMALL (NEGATIVE); URINE BLOOD LARGE (NEGATIVE); URINE GLUCOSE (UA) NEGATIVE (NEGATIVE); URINE LEUKOCYTE ESTERASE NEGATIVE Leu/uL (NEGATIVE); URINE PROTEIN 30 mg/dL (<30 mg/dL)
[2018-07-14 20:59] LABS: ALT/SGPT < 6 U/L (7-56)
[2018-07-14 21:00] LABS: URINE APPEARANCE SLIGHT-CLOUDY (CLEAR); URINE COLOR DARK YELLOW (YELLOW)
[2018-07-14 21:04] LABS: URINE RBC TNTC /hpf (0-2)
[2018-07-14 21:06] LABS: TROPONIN I < 0.01 ng/mL
[2018-07-14] MEDS ORDERED: cefTRIAXone 1 gm 1 GM/100 ML BAG IVPB STA (21:58)
[2018-07-15 00:05] LABS: VENOUS BLOOD GAS BASE EXCESS -0.4 mmol/L (0.0-2.0); VENOUS BLOOD GAS PO2 60 mm/Hg (30-55); VENOUS BLOOD PH 7.36 (7.32-7.43)
--- NOTE | 2018-07-15 06:48 | CP.PCM.HP ---
<Sarah Cervantes - Last Filed: 07/15/18 20:09> History of Present Illness - History of Present Illness History of Present Illness: Please note patient is a poor historian. History as per EMR 82yo male PMHx TIA, dementia, seizures, colon ca s/p resection, depression, pac emaker, b/l hearing aides, unsteady gait, multiple falls presented to ER 07/14/18 for generalized weakness and decreased appetite. Patient's PMD was concerned for possible UTI. As per chart patient denied any fever, chills, chest pain, shortness of breath, nausea, vomiting, diarrhea, urinary symptoms, back pain, neck pain, headache, dizziness, or any other complaints at home. This AM patient seen and examined at bedside. Patient had no acute events overnight as per nursing. PMD: Dr. Jerry PMHx: TIA, dementia, seizures, colon ca s/p resection, depression, pacemaker, b/l hearing aides, unsteady gait, multiple falls PSurghx: colon resection, pacemaker placement Meds: pls see chart ALL: NKDA Present on Admission - Present on Admission Any Indicators Present on Admission: No Review of Systems - Review of Systems All systems: reviewed and no additional remarkable complaints except Review of Systems: as per HPI Past Patient History - Infectious Disease Hx of Infectious Diseases: None - Tetanus Immunizations Tetanus Immunization: Up to Date - Past Medical History & Family History Past Medical History?: Yes - Past Social History Smoking Status: Never Smoked - CARDIAC Hx Cardiac Disorders: Yes (Pacemaker) - PULMONARY Hx Respiratory Disorders: No - NEUROLOGICAL HX Cerebrovascular Accident: Yes (TIA) - HEENT Hx HEENT Problems: Yes (LEFT EYE -DECREASED VISION. "HOLE IN RETINA"HAD SX) Hx Deafness: Yes (BILATERAL HEARING AIDES) - RENAL Hx Chronic Kidney Disease: No - ENDOCRINE/METABOLIC Hx Endocrine Disorders: No - HEMATOLOGICAL/ONCOLOGICAL Hx Blood Disorders: Yes Hx Cancer: Yes (COLON CA WITH COLON RESECTION NO RADIATION OR CHEMO) - INTEGUMENTARY Hx Dermatological Problems: No - MUSCULOSKELETAL/RHEUMATOLOGICAL Hx Falls: Yes - GASTROINTESTINAL Hx Gastrointestinal Disorders: Yes (COLON CA WITH COLON RESECTION) - GENITOURINARY/GYNECOLOGICAL Hx Genitourinary Disorders: No - PSYCHIATRIC Hx Psychophysiologic Disorder: Yes Hx Depression: Yes Hx Substance Use: No - SURGICAL HISTORY Other/Comment: colon resection, pacemaker insertion - ANESTHESIA Hx Anesthesia: Yes Hx Anesthesia Reactions: No Hx Malignant Hyperthermia: No Meds Allergies/Adverse Reactions: Allergies Allergy/AdvReac Type Severity Reaction Status Date / Time No Known Allergies Allergy Verified 08/28/16 10:47 Physical Exam - Constitutional Appears: Non-toxic, No Acute Distress - Head Exam Head Exam: ATRAUMATIC, NORMAL INSPECTION, NORMOCEPHALIC - Eye Exam Eye Exam: Normal appearance. absent: Conjunctival injection, Scleral icterus - ENT Exam ENT Exam: Mucous Membranes Moist - Respiratory Exam Respiratory Exam: Decreased Breath Sounds, NORMAL BREATHING PATTERN. absent: Rales, Rhonchi, Wheezes, Respiratory Distress - Cardiovascular Exam Cardiovascular Exam: +S1, +S2 - GI/Abdominal Exam GI & Abdominal Exam: Normal Bowel Sounds, Soft. absent: Tenderness - Extremities Exam Extremities exam: Positive for: pedal pulses present. Negative for: pedal edema, tenderness - Neurological Exam Neurological exam: Alert - Psychiatric Exam Psychiatric exam: Normal Affect, Normal Mood - Skin Skin Exam: Dry, Intact, Normal Color, Warm Results - Vital Signs Recent Vital Signs: Last Vital Signs Temp 98.3 F 07/15/18 00:05 Pulse 70 07/15/18 00:05 Resp 20 07/15/18 01:31 BP 131/77 07/15/18 00:05 Pulse Ox 97 07/15/18 00:05 - Labs Result Diagrams: 07/15/18 08:00 07/15/18 08:00 Labs: Laboratory Results - last 24 hr 07/14/18 07/14/18 07/14/18 20:30 20:30 20:30 WBC 10.4 RBC 5.00 Hgb 15.3 Hct 45.3 MCV 90.6 MCH 30.6 MCHC 33.8 RDW 13.1 Plt Count 198 MPV 8.5 Neut % (Auto) 76.0 H Lymph % (Auto) 13.7 L [place] % (Auto) 9.4 H Eos % (Auto) 0.7 L Baso % (Auto) 0.2 Lymph # (Auto) 1.4 [place] # (Auto) 1.0 H Eos # (Auto) 0.1 Baso # (Auto) 0.02 Absolute Neuts (auto) 7.90 H PT 14.7 H INR 1.32 APTT 30.1 pO2 VBG pH VBG pCO2 VBG HCO3 VBG Total CO2 VBG O2 Sat (Calc) VBG Base Excess VBG Potassium Glucose Lactate FiO2 Crit Value Called To Crit Value Called By Blood Gas Notified Time Sodium 140 Potassium 4.0 Chloride 105 Carbon Dioxide 24 Anion Gap 15 BUN 45 H Creatinine 2.2 H Est GFR ( Amer) 35 Est GFR (Non-Af Amer) 29 Random Glucose 141 H Calcium 10.0 Total Bilirubin 0.4 AST 20 ALT < 6 L Alkaline Phosphatase 107 Troponin I < 0.01 Total Protein 7.7 Albumin 4.0 Globulin 3.7 Albumin/Globulin Ratio 1.1 Venous Blood Potassium Urine Color Urine Appearance Urine pH Ur Specific [place] Urine Protein Urine Glucose (UA) Urine Ketones Urine Blood Urine Nitrate Urine Bilirubin Urine Urobilinogen Ur Leukocyte Esterase Urine RBC Urine WBC Ur Epithelial Cells Influenza Typ A,B (EIA) 07/14/18 07/14/18 07/14/18 20:30 20:36 20:48 WBC RBC Hgb Hct MCV MCH MCHC RDW Plt Count MPV Neut % (Auto) Lymph % (Auto) [place] % (Auto) Eos % (Auto) Baso % (Auto) Lymph # (Auto) [place] # (Auto) Eos # (Auto) Baso # (Auto) Absolute Neuts (auto) PT INR APTT pO2 97 H VBG pH 7.36 VBG pCO2 42.0 VBG HCO3 23.7 VBG Total CO2 25.0 VBG O2 Sat (Calc) 99.1 H VBG Base Excess -1.8 L VBG Potassium 3.8 Glucose 142 H Lactate 2.5 H FiO2 21.0 Crit Value Called To Cassy chapa Crit Value Called By Etq Blood Gas Notified Time 2044 Sodium 137.0 Potassium Chloride 105.0 Carbon Dioxide Anion Gap BUN Creatinine Est GFR ( Amer) Est GFR (Non-Af Amer) Random Glucose Calcium Total Bilirubin AST ALT Alkaline Phosphatase Troponin I Total Protein Albumin Globulin Albumin/Globulin Ratio Venous Blood Potassium 3.8 Urine Color Dark yellow Urine Appearance Slight-cloudy Urine pH 6.0 Ur Specific [place] >= 1.030 Urine Protein 30 H Urine Glucose (UA) Negative Urine Ketones Trace H Urine Blood Large H Urine Nitrate Negative Urine Bilirubin Small H Urine Urobilinogen 1.0 H Ur Leukocyte Esterase Negative Urine RBC Tntc H Urine WBC None Ur Epithelial Cells 1 - 3 Influenza Typ A,B (EIA) Negative for flu a/b 07/14/18 23:40 WBC RBC Hgb Hct MCV MCH MCHC RDW Plt Count MPV Neut % (Auto) Lymph % (Auto) [place] % (Auto) Eos % (Auto) Baso % (Auto) Lymph # (Auto) [place] # (Auto) Eos # (Auto) Baso # (Auto) Absolute Neuts (auto) PT INR APTT pO2 60 H VBG pH 7.36 VBG pCO2 45.0 VBG HCO3 25.4 VBG Total CO2 26.8 VBG O2 Sat (Calc) 93.3 H VBG Base Excess -0.4 L VBG Potassium 4.5 Glucose 91 Lactate 1.3 FiO2 21.0 Crit Value Called To Crit Value Called By Blood Gas Notified Time Sodium 138.0 Potassium Chloride 106.0 Carbon Dioxide Anion Gap BUN Creatinine Est GFR ( Amer) Est GFR (Non-Af Amer) Random Glucose Calcium Total Bilirubin AST ALT Alkaline Phosphatase Troponin I Total Protein Albumin Globulin Albumin/Globulin Ratio Venous Blood Potassium 4.5 Urine Color Urine Appearance Urine pH Ur Specific [place] Urine Protein Urine Glucose (UA) Urine Ketones Urine Blood Urine Nitrate Urine Bilirubin Urine Urobilinogen Ur Leukocyte Esterase Urine RBC Urine WBC Ur Epithelial Cells Influenza Typ A,B (EIA) Assessment & Plan - Assessment and Plan (Free Text) Assessment: -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 Head CT on admission unremarkable for acute change. INDER likely secondary to decreased PO intake and dehydration- continue fluids@80cc/hr and monitor UO. CXR unremarkable and flu negative. Patient afebrile with no leukocytosis. Seismic Survey Assistant referral for decreased appetite and PT ordered for unsteady gait and frequentf alls. Patient takes Cerefolin Nac, Donepezil, and Namenda for dementia. Continue patient Keppra for seizures- will add on seizure precautions and Ativan prn for seizure activity. Continue home ASA. Patient also on colace for constipation which will be continued and vitamin D for low vitamin D which will be continued. Fall precautions in place and patient is on a HHD. Will continue to monitor at this time. Discussed with Dr. Tito Cervantes PGY3 <Kenji Francis - Last Filed: 07/15/18 21:53> Results - Vital Signs Recent Vital Signs: Last Vital Signs Temp 98.4 F 07/15/18 15:57 Pulse 63 07/15/18 15:57 Resp 18 07/15/18 15:57 BP 92/50 L 07/15/18 15:57 Pulse Ox 93 L 07/15/18 15:57 - Labs Result Diagrams: 07/15/18 08:00 07/15/18 08:00 Labs: Laboratory Results - last 24 hr 07/14/18 07/15/18 07/15/18 23:40 08:00 08:00 WBC 10.3 RBC 4.50 Hgb 13.6 L Hct 40.7 L MCV 90.4 MCH 30.2 MCHC 33.4 RDW 13.0 Plt Count 191 MPV 8.5 Neut % (Auto) 71.8 H Lymph % (Auto) 17.2 L [place] % (Auto) 9.1 H Eos % (Auto) 1.7 Baso % (Auto) 0.2 Lymph # (Auto) 1.8 [place] # (Auto) 0.9 H Eos # (Auto) 0.2 Baso # (Auto) 0.02 Absolute Neuts (auto) 7.42 H pO2 60 H VBG pH 7.36 VBG pCO2 45.0 VBG HCO3 25.4 VBG Total CO2 26.8 VBG O2 Sat (Calc) 93.3 H VBG Base Excess -0.4 L VBG Potassium 4.5 Sodium 138.0 140 Chloride 106.0 108 H Glucose 91 Lactate 1.3 FiO2 21.0 Potassium 3.9 Carbon Dioxide 25 Anion Gap 11 BUN 42 H Creatinine 2.0 H Est GFR ( Amer) 39 Est GFR (Non-Af Amer) 32 Random Glucose 97 Calcium 9.1 Phosphorus 4.0 Magnesium 2.2 Total Bilirubin 0.5 AST 19 ALT < 6 L Alkaline Phosphatase 84 Total Protein 6.8 Albumin 3.4 Globulin 3.4 Albumin/Globulin Ratio 1.0 L Venous Blood Potassium 4.5 Assessment & Plan - Assessment and Plan (Free Text) Plan: Pt seen and examined by me. I have reviewed the note of the medical lab technician and I agree with it. I have discussed the assessment and plan with the resident. I have reviewed the medications and the last labs.Pt with weakness and difficulty in ambulating. He has gait dysfunction/ instability. Will continue with Donepezil and Namenda for Dementia. PT evaluation. Colace for constipation. Nimisha palomo Sz d/o.
--- NOTE | 2018-07-15 08:08 | CT ---
Date of service: 07/14/2018 PROCEDURE: CT HEAD WITHOUT CONTRAST. HISTORY: weakness COMPARISON: 05/10/17. TECHNIQUE: Axial computed tomography images were obtained through the head/brain without intravenous contrast. Radiation dose: Total exam DLP = 884.92 mGy-cm. This CT exam was performed using one or more of the following dose reduction techniques: Automated exposure control, adjustment of the mA and/or kV according to patient size, and/or use of iterative reconstruction technique. FINDINGS: HEMORRHAGE: No intracranial hemorrhage. BRAIN: No mass effect or edema. Extensive atrophy and chronic microvascular ischemic changes. VENTRICLES: Unremarkable. No hydrocephalus. CALVARIUM: Unremarkable. PARANASAL SINUSES: Unremarkable as visualized. No significant inflammatory changes. MASTOID AIR CELLS: Unremarkable as visualized. No inflammatory changes. OTHER FINDINGS: None. IMPRESSION: No intracranial hemorrhage..
[2018-07-15 08:30] LABS: BASO # 0.02 K/mm3 (0.0-2.0); BASO % 0.2 % (0.0-3.0); EOS # 0.2 (0.0-0.7); EOS % 1.7 % (1.5-5.0); HEMOGLOBIN 13.6 g/dL (14.0-18.0); LYMPH # 1.8 (1.2-3.4); LYMPH % 17.2 % (22.0-35.0); MEAN CELL VOLUME 90.4 fl (80.0-105.0); MEAN CORPUSCULAR HEMOGLOBIN 30.2 pg (25.0-35.0); MEAN CORPUSCULAR HGB CONC 33.4 g/dl (31.0-37.0); MEAN PLATELET VOLUME 8.5 fl (7.0-11.0); MONO # 0.9 (0.1-0.6); MONO % 9.1 % (1.0-6.0); RBC 4.5 10^6/uL (3.5-6.1); WHITE BLOOD COUNT 10.3 10^3/uL (4.5-11.0)
[2018-07-15 08:44] LABS: ALBUMIN 3.4 g/dL (3.0-4.8); ALT/SGPT < 6 U/L (7-56); AST/SGOT 19 U/L (17-59); BLOOD UREA NITROGEN 42 mg/dL (7-21); CALCIUM 9.1 mg/dL (8.4-10.5); GFR NON-AFRICAN AMERICAN 32
--- NOTE | 2018-07-15 09:17 | RAD ---
Date of service: 07/14/2018 HISTORY: weakness COMPARISON: 08/28/2016 TECHNIQUE: Chest PA and lateral FINDINGS: LUNGS: No active pulmonary disease. PLEURA: No significant pleural effusion identified. No pneumothorax apparent. CARDIOVASCULAR: No aortic atherosclerotic calcification present. Normal cardiac size. No pulmonary vascular congestion. OSSEOUS STRUCTURES: No significant abnormalities. VISUALIZED UPPER ABDOMEN: Normal. OTHER FINDINGS: Dual lead pacemaker IMPRESSION: No active disease.
--- NOTE | 2018-07-15 09:37 | CP.PCM.APN ---
Subjective - Date & Time of Evaluation Date of Evaluation: 07/15/18 Time of Evaluation: 09:30 - Subjective Subjective: Pt seen and examined at bedside. In no acute distress. Objective - Vital Signs/Intake and Output Vital Signs (last 24 hours): Temp Pulse Resp BP Pulse Ox 98.4 F 62 17 145/77 96 07/15/18 06:00 07/15/18 06:00 07/15/18 06:00 07/15/18 06:00 07/15/18 06:00 - Medications Medications: Current Medications Aspirin (Aspirin Chewable) 81 mg PO DAILY [facility] Last Admin: 07/15/18 09:20 Dose: 81 mg Docusate Sodium (Colace) 100 mg PO DAILY [facility] Last Admin: 07/15/18 09:20 Dose: 100 mg Home Med (Home Med) 21 unit PO DAILY [facility] Last Admin: 07/15/18 09:20 Dose: Not Given Home Med (Home Med) 28 unit PO DAILY [facility] Last Admin: 07/15/18 09:20 Dose: Not Given Sodium Chloride (Sodium Chloride 0.9%) 1,000 mls @ 80 mls/hr IV .[id number] [facility] Last Admin: 07/14/18 20:57 Dose: 80 mls/hr Levetiracetam (Keppra) 250 mg PO BID [facility] Last Admin: 07/15/18 09:21 Dose: 250 mg - Labs Labs: 07/15/18 08:00 07/15/18 08:00 PT 14.7 SECONDS (9.4-12.5) H 07/14/18 20:30 INR 1.32 07/14/18 20:30 APTT 30.1 Seconds (26.9-38.3) 07/14/18 20:30 - Constitutional Appears: Well, No Acute Distress - Head Exam Head Exam: NORMOCEPHALIC - Respiratory Exam Respiratory Exam: Clear to Ausculation Bilateral, NORMAL BREATHING PATTERN - Cardiovascular Exam Cardiovascular Exam: REGULAR RHYTHM, +S1, +S2 - GI/Abdominal Exam GI & Abdominal Exam: Soft, Normal Bowel Sounds - Extremities Exam Extremities Exam: Normal Inspection - Neurological Exam Neurological Exam: Alert, Awake Assessment and Plan - Assessment and Plan (Free Text) Assessment: pt is an 82 y.o. male with pmhx of dementia, pacemaker, colon CA w/ colon resection, TIA, L eye "decreased vision" who was brought in by family to ED due to generalized weakness and not eating. Impressions Head CT 07/14/18 19:51 IMPRESSION: No intracranial hemorrhage.. Chest X-Ray 07/14/18 19:53 IMPRESSION: No active disease. Plan: On IVF - bun 40/cr 2.0 Trend bun/cr Urine Cx/Blood Cx pending Physical therapy pending Meds per MAR Will continue to follow
[2018-07-15] MEDS ORDERED: MEMANTINE 28 MG PO SCH (10:00)
[2018-07-15] MEDS ORDERED: DONEPEZIL PO SCH (10:00)
--- NOTE | 2018-07-15 11:00 | CARD ---
APPROVED REPORT Date of service: 07/14/2018 EKG Measurement Heart [id number] <Conclusion> Normal sinus rhythm Possible Inferior infarct, age Old?
[2018-07-16] MEDS: Sodium Chloride 0.9% 1,000 ML IV SCH ×4 (05:27→23:17)
--- NOTE | 2018-07-16 06:11 | CP.PCM.PN ---
<Sarah Cervantes - Last Filed: 07/16/18 20:50> Subjective - Date & Time of Evaluation Date of Evaluation: 07/16/18 Time of Evaluation: 10:00 - Subjective Subjective: Pgy3 Medicine progress note for Dr. Francis Patient seen and examined with family at bedside. As per nursing no acute events overnight. Patient resting comfortably and was sitting up this AM. He denied any acute complaints of chest pain, SOB, abd pain, pain in his legs b/l. Could not complete ROS secondary to patient's dementia. Objective - Vital Signs/Intake and Output Vital Signs (last 24 hours): Temp Pulse Resp BP Pulse Ox 97.8 F 60 18 139/77 96 07/15/18 22:42 07/15/18 22:42 07/15/18 22:42 07/15/18 22:42 07/15/18 22:42 Intake and Output: 07/15/18 07/16/18 18:59 06:59 Intake Total 480 540 Balance 480 540 - Medications Medications: Current Medications Aspirin (Aspirin Chewable) 81 mg PO DAILY [facility] Last Admin: 07/15/18 09:20 Dose: 81 mg Cholecalciferol (Vitamin D) 1,000 intlu PO DAILY [facility] Docusate Sodium (Colace) 100 mg PO DAILY [facility] Last Admin: 07/15/18 09:20 Dose: 100 mg Home Med (Home Med) 21 unit PO DAILY [facility] Last Admin: 07/15/18 09:20 Dose: Not Given Home Med (Home Med) 28 unit PO DAILY [facility] Last Admin: 07/15/18 09:20 Dose: Not Given Sodium Chloride (Sodium Chloride 0.9%) 1,000 mls @ 80 mls/hr IV .[id number] [facility] Last Admin: 07/16/18 05:27 Dose: 80 mls/hr Levetiracetam (Keppra) 250 mg PO BID [facility] Last Admin: 07/15/18 17:20 Dose: 250 mg Lorazepam (Ativan) 1 mg IVP Q6H PRN; Protocol PRN Reason: Seizure activity - Labs Labs: 07/15/18 08:00 07/15/18 08:00 PT 14.7 SECONDS (9.4-12.5) H 07/14/18 20:30 INR 1.32 07/14/18 20:30 APTT 30.1 Seconds (26.9-38.3) 07/14/18 20:30 - Additional Findings Additional findings: - Constitutional Appears: Non-toxic, No Acute Distress - Head Exam Head Exam: ATRAUMATIC, NORMAL INSPECTION, NORMOCEPHALIC - Eye Exam Eye Exam: Normal appearance. absent: Conjunctival injection, Scleral icterus - ENT Exam ENT Exam: Mucous Membranes Moist - Respiratory Exam Respiratory Exam: Decreased Breath Sounds, NORMAL BREATHING PATTERN. absent: Rales, Rhonchi, Wheezes, Respiratory Distress - Cardiovascular Exam Cardiovascular Exam: +S1, +S2 - GI/Abdominal Exam GI & Abdominal Exam: Normal Bowel Sounds, Soft. absent: Tenderness - Extremities Exam Extremities exam: Positive for: pedal pulses present. 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 Creatinin 2 this Am down from 2.2. Renal u/s ordered- will f/u. Continue fluids @ 80cc/hr and monitor UO. Urology on consult. Blood and urine cultures negative so far. Head CT on admission unremarkable for acute change. CXR unremarkable and flu negative. Patient afebrile with no leukocytosis. Sql Server Developer referral for de creased appetite and PT ordered for unsteady gait and frequent falls. PT recommends TCU. Patient takes Cerefolin Nac, Donepezil, and Namenda for dementia. Continue patient Keppra for seizures- will add on seizure precautions and Ativan prn for seizure activity. Continue home ASA. Patient also on colace for constipation which will be continued and vitamin D for low vitamin D which will be continued. Fall precautions in place and patient is on a HHD. Will continue to monitor at this time. Discussed with Dr. Tito Cervantes PGY3 <Kenji Francis S - Last Filed: 07/17/18 19:02> Objective - Vital Signs/Intake and Output Vital Signs (last 24 hours): Temp Pulse Resp BP Pulse Ox 98.1 F 75 18 147/79 94 L 07/17/18 06:00 07/17/18 06:00 07/17/18 06:00 07/17/18 06:00 07/17/18 06:00 Intake and Output: 07/17/18 07/17/18 06:59 18:59 Intake Total 660 Balance 660 - Labs Labs: 07/17/18 06:40 07/17/18 06:40 PT 14.7 SECONDS (9.4-12.5) H 07/14/18 20:30 INR 1.32 07/14/18 20:30 APTT 30.1 Seconds (26.9-38.3) 07/14/18 20:30 Assessment and Plan - Assessment and Plan (Free Text) Plan: Pt seen and examined by me. This is a late entry. I have reviewed the note of the medical biller coder and I agree with it. I have discussed the assessment and plan with the resident. I have reviewed the medications and the last labs. Pt with INDER and has been given IVF. Pt with probable Alzh Dementia and is on Donepezil and Namenda. Pt with gait instability. Pt will need PT and possible MAYELIN/TCU.
[2018-07-16] MEDS: Cholecalciferol 1,000 INTLU TAB PO SCH (09:31)
[2018-07-16] MEDS: Ciprofloxacin 0.3% OPTH SOLN OS SCH ×4 (10:01→23:01)
[2018-07-16] MEDS ORDERED: MEMANTINE 28 MG PO SCH (17:37)
[2018-07-16] MEDS: DONEPEZIL 10 MG PO SCH (18:28)
[2018-07-16 22:10] VITALS: PULSE 75; RESP 18
[2018-07-17 07:07] LABS: HEMOGLOBIN 12.6 g/dL (14.0-18.0); MEAN CELL VOLUME 90.6 fl (80.0-105.0); MEAN CORPUSCULAR HEMOGLOBIN 29.6 pg (25.0-35.0); MEAN CORPUSCULAR HGB CONC 32.6 g/dl (31.0-37.0); MEAN PLATELET VOLUME 8.4 fl (7.0-11.0); RBC 4.26 10^6/uL (3.5-6.1); RED CELL DISTRIBUTION WIDTH 12.7 % (11.5-14.5); WHITE BLOOD COUNT 8.7 10^3/uL (4.5-11.0)
[2018-07-17 07:40] VITALS: BP 147/79; TEMP 98.1; O2SAT 94
--- NOTE | 2018-07-17 09:23 | US ---
Date of service: 07/17/2018 PROCEDURE: Ultrasound of the Kidneys HISTORY: emerson COMPARISON: None available. TECHNIQUE: Sonogram of the kidneys. FINDINGS: RIGHT KIDNEY: Measures: 11 x 2 x 5.8 x 5.1 cm. Normal in size, contour and echogenicity. There is a potential exophytic cyst off the upper midpole right kidney laterally measuring 15.1 x 10 x 1 x 9.6 cm versus possible ext exophytic hepatic cyst. CT of the abdomen can confirm. No solid mass related to the right kidney or urolithiasis. No perinephric fluid collection appreciable. A simple cyst seen at the upper pole right kidney medially, measure 1.8 x 1.8 x 2.7 cm. LEFT KIDNEY: Measures: 10.4 x 5.3 x 5.2 cm. Normal in size, contour and echogenicity. No urolithiasis or solid mass related. There is a small cyst at the lower pole left kidney measure 1.8 x 1.2 x 1.3 cm. OTHER FINDINGS: None. IMPRESSION: Bilateral renal small cysts are identified with a possible large simple cyst exophytic off the upper midpole right kidney laterally measuring 15.1 cm greatest dimension versus exophytic right lobe hepatic cyst abutting the right kidney. CT or MRI can confirm.
[2018-07-17 09:30] LABS: ALBUMIN 3.2 g/dL (3.0-4.8); ALT/SGPT < 6 U/L (7-56); AST/SGOT 16 U/L (17-59); BLOOD UREA NITROGEN 26 mg/dL (7-21); GFR NON-AFRICAN AMERICAN 58
[2018-07-17] MEDS: Ciprofloxacin 0.3% OPTH SOLN OS SCH ×3 (11:29→17:24)
[2018-07-17] MEDS: Cholecalciferol 1,000 INTLU TAB PO SCH (11:29)
[2018-07-17] MEDS: DONEPEZIL 10 MG PO SCH ×2 (11:30→17:25)
[2018-07-17] MEDS: Sodium Chloride 0.9% 1,000 ML IV SCH (11:34)
--- NOTE | 2018-07-17 11:54 | CP.PCM.DIS ---
<Sarah Cervantes - Last Filed: 07/17/18 12:50> Provider - Provider Date of Admission: 07/14/18 22:05 Attending physician: Kenji Francis MD Primary care physician: Bony Jerry MD Consults: 07/16/18 07:57 TCU [Evaluation for TRCU] Routine Comment: Physician Instructions: Reason For Exam: rehab 07/16/18 12:22 Consult [Physician Consult] Routine Comment: Consulting Provider: Kuldeep Mueller Consulting Physician: Kuldeep Mueller Reason for Consult: pt known to you Time Spent in preparation of Discharge (in minutes): 35 Hospital Course - Lab Results Lab Results: Micro Results 07/14/18 20:30 Blood-Venous Blood Culture - Preliminary NO GROWTH AFTER 48 HOURS 07/14/18 20:00 Blood-Venous Blood Culture - Preliminary NO GROWTH AFTER 48 HOURS 07/14/18 20:30 Urine,Catheterized Urine Culture - Final No Growth (<1,000 CFU/ML) Most Recent Lab Values WBC 8.7 10^3/uL (4.5-11.0) 07/17/18 06:40 RBC 4.26 10^6/uL (3.5-6.1) 07/17/18 06:40 Hgb 12.6 g/dL (14.0-18.0) L 07/17/18 06:40 Hct 38.6 % (42.0-52.0) L 07/17/18 06:40 MCV 90.6 fl (80.0-105.0) 07/17/18 06:40 MCH 29.6 pg (25.0-35.0) 07/17/18 06:40 MCHC 32.6 g/dl (31.0-37.0) 07/17/18 06:40 RDW 12.7 % (11.5-14.5) 07/17/18 06:40 Plt Count 197 10^3/uL (120.0-450.0) 07/17/18 06:40 MPV 8.4 fl (7.0-11.0) 07/17/18 06:40 Neut % (Auto) 71.8 % (50.0-68.0) H 07/15/18 08:00 Lymph % (Auto) 17.2 % (22.0-35.0) L 07/15/18 08:00 Benson % (Auto) 9.1 % (1.0-6.0) H 07/15/18 08:00 Eos % (Auto) 1.7 % (1.5-5.0) 07/15/18 08:00 Baso % (Auto) 0.2 % (0.0-3.0) 07/15/18 08:00 Lymph # (Auto) 1.8 (1.2-3.4) 07/15/18 08:00 Benson # (Auto) 0.9 (0.1-0.6) H 07/15/18 08:00 Eos # (Auto) 0.2 (0.0-0.7) 07/15/18 08:00 Baso # (Auto) 0.02 K/mm3 (0.0-2.0) 07/15/18 08:00 Absolute Neuts (auto) 7.42 (1.4-6.5) H 07/15/18 08:00 PT 14.7 SECONDS (9.4-12.5) H 07/14/18 20:30 INR 1.32 07/14/18 20:30 APTT 30.1 Seconds (26.9-38.3) 07/14/18 20:30 pO2 60 mm/Hg (30-55) H 07/14/18 23:40 VBG pH 7.36 (7.32-7.43) 07/14/18 23:40 VBG pCO2 45.0 (40-60) 07/14/18 23:40 VBG HCO3 25.4 mmol/l (21-28) 07/14/18 23:40 VBG Total CO2 26.8 mmol.L (22-28) 07/14/18 23:40 VBG O2 Sat (Calc) 93.3 % (40-65) H 07/14/18 23:40 VBG Base Excess -0.4 mmol/L (0.0-2.0) L 07/14/18 23:40 VBG Potassium 4.5 mmol/L (3.6-5.2) 07/14/18 23:40 Sodium 138.0 mmol/L (132-148) 07/14/18 23:40 Chloride 106.0 mmol/L (98-107) 07/14/18 23:40 Glucose 91 mg/dl (75-110) 07/14/18 23:40 Lactate 1.3 mmol/L (0.7-2.1) 07/14/18 23:40 FiO2 21.0 % 07/14/18 23:40 Crit Value Called To Cassy chapa 07/14/18 20:36 Crit Value Called By Andie 07/14/18 20:36 Blood Gas Notified Time 204407/14/18 20:36 Sodium 139 mmol/L (132-148) 07/17/18 06:40 Potassium 4.3 mmol/L (3.6-5.0) 07/17/18 06:40 Chloride 109 mmol/L (98-107) H 07/17/18 06:40 Carbon Dioxide 25 mmol/L (21-33) 07/17/18 06:40 Anion Gap 9 (10-20) L 07/17/18 06:40 BUN 26 mg/dL (7-21) H 07/17/18 06:40 Creatinine 1.2 mg/dl (0.8-1.5) 07/17/18 06:40 Est GFR ( Amer) > 60 07/17/18 06:40 Est GFR (Non-Af Amer) 58 07/17/18 06:40 Random Glucose 89 mg/dL (70-110) 07/17/18 06:40 Calcium 9.0 mg/dL (8.4-10.5) 07/17/18 06:40 Phosphorus 4.0 mg/dL (2.5-4.5) 07/15/18 08:00 Magnesium 2.2 mg/dL (1.7-2.2) 07/15/18 08:00 Total Bilirubin 0.5 mg/dL (0.2-1.3) 07/17/18 06:40 AST 16 U/L (17-59) L 07/17/18 06:40 ALT < 6 U/L (7-56) L 07/17/18 06:40 Alkaline Phosphatase 78 U/L (38-126) 07/17/18 06:40 Troponin I < 0.01 ng/mL 07/14/18 20:30 Total Protein 6.4 g/dL (5.8-8.3) 07/17/18 06:40 Albumin 3.2 g/dL (3.0-4.8) 07/17/18 06:40 Globulin 3.2 gm/dL 07/17/18 06:40 Albumin/Globulin Ratio 1.0 (1.1-1.8) L 07/17/18 06:40 Venous Blood Potassium 4.5 mmol/L (3.6-5.2) 07/14/18 23:40 Urine Color Dark yellow (YELLOW) 07/14/18 20:48 Urine Appearance Slight-cloudy (CLEAR) 07/14/18 20:48 Urine pH 6.0 (4.7-8.0) 07/14/18 20:48 Ur Specific [place] >= 1.030 (1.005-1.035) 07/14/18 20:48 Urine Protein 30 mg/dL (<30 mg/dL) H 07/14/18 20:48 Urine Glucose (UA) Negative mg/dL (NEGATIVE) 07/14/18 20:48 Urine Ketones Trace mg/dL (NEGATIVE) H 07/14/18 20:48 Urine Blood Large (NEGATIVE) H 07/14/18 20:48 Urine Nitrate Negative (NEGATIVE) 07/14/18 20:48 Urine Bilirubin Small (NEGATIVE) H 07/14/18 20:48 Urine Urobilinogen 1.0 E.U./dL (<1 E.U./dL) H 07/14/18 20:48 Ur Leukocyte Esterase Negative [place]/uL (NEGATIVE) 07/14/18 20:48 Urine RBC Tntc /hpf (0-2) H 07/14/18 20:48 Urine WBC None /hpf (0-6) 07/14/18 20:48 Ur Epithelial Cells 1 - 3 /hpf (0-5) 07/14/18 20:48 Influenza Typ A,B (EIA) Negative for flu a/b (NEGATIVE) 07/14/18 20:30 - Hospital Course Hospital Course: Upon Admission 82yo male PMHx TIA, dementia, seizures, colon ca s/p resection, depression, pacemaker, b/l hearing aides, unsteady gait, multiple falls presented to ER 07/14/18 for generalized weakness and decreased appetite. Patient's PMD was concerned for possible UTI. As per chart patient denied any fever, chills, chest pain, shortness of breath, nausea, vomiting, diarrhea, urinary symptoms, back pain, neck pain, headache, dizziness, or any other complaints at home. Hospital Course Patient admitted to med/surg. Head CT on admission unremarkable for acute change. INDER likely secondary to decreased PO intake and dehydration. Patient was put on fluids@80cc/hr and creatinine trended down. CXR unremarkable and flu negative. Patient afebrile with no leukocytosis. Renal u/s revealed b/l renal small cysts with possible large simple cyst exophytic of upper midpole R kidney laterally measuring 15.1cm greatest dimension vs exophytic right lobe hepatic cyst abutting the right kidney. Urology consulted. Blood and urine cultures negative so far. PT ordered for unsteady gait and frequent falls who recommended TCU. Patient continued on Cerefolin Nac, Donepezil, and Namenda for dementia. Continued patient Keppra for seizures. Continued home ASA. Patient also on colace for constipation which will be continued and vitamin D for low vitamin D which will be continued. Patient clinically improved and was medically optimized for discharge to TCU. Discharge Exam - Additional Findings Additional findings: - Constitutional Appears: Non-toxic, No Acute Distress - Head Exam Head Exam: ATRAUMATIC, NORMAL INSPECTION, NORMOCEPHALIC - Eye Exam Eye Exam: Normal appearance. absent: Conjunctival injection, Scleral icterus - ENT Exam ENT Exam: Mucous Membranes Moist - Respiratory Exam Respiratory Exam: Decreased Breath Sounds, NORMAL BREATHING PATTERN. absent: Rales, Rhonchi, Wheezes, Respiratory Distress - Cardiovascular Exam Cardiovascular Exam: +S1, +S2 - GI/Abdominal Exam GI & Abdominal Exam: Normal Bowel Sounds, Soft. absent: Tenderness - Extremities Exam Extremities exam: Positive for: pedal pulses present. Negative for: pedal edema, tenderness - Neurological Exam Neurological exam: Alert - Psychiatric Exam Psychiatric exam: Normal Affect, Normal Mood - Skin Skin Exam: Dry, Intact, Normal Color, Warm Discharge Plan - Follow Up Plan Condition: FAIR Disposition: OTHER INSTITUTION Instructions: Preventing Falls in the Older Adult, Seizures, Adult (DC), Dementia (DC), Generalized Weakness Additional Instructions: please continue all medications Referrals: Bony Jerry MD [Primary Care Provider] - Kuldeep Mueller MD [Staff Provider] - Bryan Hung DO [Staff Provider] - <Kenji Francis S - Last Filed: 07/17/18 16:53> Provider - Provider Date of Admission: 07/14/18 22:05 Attending physician: Kenji Francis MD Primary care physician: Bony Jerry MD Consults: 07/16/18 07:57 TCU [Evaluation for TRCU] Routine Comment: Physician Instructions: Reason For Exam: rehab 07/16/18 12:22 Consult [Physician Consult] Routine Comment: Consulting Provider: Kuldeep Mueller Consulting Physician: Kuldeep Mueller Reason for Consult: pt known to you Hospital Course - Lab Results Lab Results: Micro Results 07/14/18 20:30 Blood-Venous Blood Culture - Preliminary NO GROWTH AFTER 48 HOURS 07/14/18 20:00 Blood-Venous Blood Culture - Preliminary NO GROWTH AFTER 48 HOURS 07/14/18 20:30 Urine,Catheterized Urine Culture - Final No Growth (<1,000 CFU/ML) Most Recent Lab Values WBC 8.7 10^3/uL (4.5-11.0) 07/17/18 06:40 RBC 4.26 10^6/uL (3.5-6.1) 07/17/18 06:40 Hgb 12.6 g/dL (14.0-18.0) L 07/17/18 06:40 Hct 38.6 % (42.0-52.0) L 07/17/18 06:40 MCV 90.6 fl (80.0-105.0) 07/17/18 06:40 MCH 29.6 pg (25.0-35.0) 07/17/18 06:40 MCHC 32.6 g/dl (31.0-37.0) 07/17/18 06:40 RDW 12.7 % (11.5-14.5) 07/17/18 06:40 Plt Count 197 10^3/uL (120.0-450.0) 07/17/18 06:40 MPV 8.4 fl (7.0-11.0) 07/17/18 06:40 Neut % (Auto) 71.8 % (50.0-68.0) H 07/15/18 08:00 Lymph % (Auto) 17.2 % (22.0-35.0) L 07/15/18 08:00 Benson % (Auto) 9.1 % (1.0-6.0) H 07/15/18 08:00 Eos % (Auto) 1.7 % (1.5-5.0) 07/15/18 08:00 Baso % (Auto) 0.2 % (0.0-3.0) 07/15/18 08:00 Lymph # (Auto) 1.8 (1.2-3.4) 07/15/18 08:00 Benson # (Auto) 0.9 (0.1-0.6) H 07/15/18 08:00 Eos # (Auto) 0.2 (0.0-0.7) 07/15/18 08:00 Baso # (Auto) 0.02 K/mm3 (0.0-2.0) 07/15/18 08:00 Absolute Neuts (auto) 7.42 (1.4-6.5) H 07/15/18 08:00 PT 14.7 SECONDS (9.4-12.5) H 07/14/18 20:30 INR 1.32 07/14/18 20:30 APTT 30.1 Seconds (26.9-38.3) 07/14/18 20:30 pO2 60 mm/Hg (30-55) H 07/14/18 23:40 VBG pH 7.36 (7.32-7.43) 07/14/18 23:40 VBG pCO2 45.0 (40-60) 07/14/18 23:40 VBG HCO3 25.4 mmol/l (21-28) 07/14/18 23:40 VBG Total CO2 26.8 mmol.L (22-28) 07/14/18 23:40 VBG O2 Sat (Calc) 93.3 % (40-65) H 07/14/18 23:40 VBG Base Excess -0.4 mmol/L (0.0-2.0) L 07/14/18 23:40 VBG Potassium 4.5 mmol/L (3.6-5.2) 07/14/18 23:40 Sodium 138.0 mmol/L (132-148) 07/14/18 23:40 Chloride 106.0 mmol/L (98-107) 07/14/18 23:40 Glucose 91 mg/dl (75-110) 07/14/18 23:40 Lactate 1.3 mmol/L (0.7-2.1) 07/14/18 23:40 FiO2 21.0 % 07/14/18 23:40 Crit Value Called To Cassy chapa 07/14/18 20:36 Crit Value Called By Andie 07/14/18 20:36 Blood Gas Notified Time 204407/14/18 20:36 Sodium 139 mmol/L (132-148) 07/17/18 06:40 Potassium 4.3 mmol/L (3.6-5.0) 07/17/18 06:40 Chloride 109 mmol/L (98-107) H 07/17/18 06:40 Carbon Dioxide 25 mmol/L (21-33) 07/17/18 06:40 Anion Gap 9 (10-20) L 07/17/18 06:40 BUN 26 mg/dL (7-21) H 07/17/18 06:40 Creatinine 1.2 mg/dl (0.8-1.5) 07/17/18 06:40 Est GFR ( Amer) > 60 07/17/18 06:40 Est GFR (Non-Af Amer) 58 07/17/18 06:40 Random Glucose 89 mg/dL (70-110) 07/17/18 06:40 Calcium 9.0 mg/dL (8.4-10.5) 07/17/18 06:40 Phosphorus 4.0 mg/dL (2.5-4.5) 07/15/18 08:00 Magnesium 2.2 mg/dL (1.7-2.2) 07/15/18 08:00 Total Bilirubin 0.5 mg/dL (0.2-1.3) 07/17/18 06:40 AST 16 U/L (17-59) L 07/17/18 06:40 ALT < 6 U/L (7-56) L 07/17/18 06:40 Alkaline Phosphatase 78 U/L (38-126) 07/17/18 06:40 Troponin I < 0.01 ng/mL 07/14/18 20:30 Total Protein 6.4 g/dL (5.8-8.3) 07/17/18 06:40 Albumin 3.2 g/dL (3.0-4.8) 07/17/18 06:40 Globulin 3.2 gm/dL 07/17/18 06:40 Albumin/Globulin Ratio 1.0 (1.1-1.8) L 07/17/18 06:40 Venous Blood Potassium 4.5 mmol/L (3.6-5.2) 07/14/18 23:40 Urine Color Dark yellow (YELLOW) 07/14/18 20:48 Urine Appearance Slight-cloudy (CLEAR) 07/14/18 20:48 Urine pH 6.0 (4.7-8.0) 07/14/18 20:48 Ur Specific [place] >= 1.030 (1.005-1.035) 07/14/18 20:48 Urine Protein 30 mg/dL (<30 mg/dL) H 07/14/18 20:48 Urine Glucose (UA) Negative mg/dL (NEGATIVE) 07/14/18 20:48 Urine Ketones Trace mg/dL (NEGATIVE) H 07/14/18 20:48 Urine Blood Large (NEGATIVE) H 07/14/18 20:48 Urine Nitrate Negative (NEGATIVE) 07/14/18 20:48 Urine Bilirubin Small (NEGATIVE) H 07/14/18 20:48 Urine Urobilinogen 1.0 E.U./dL (<1 E.U./dL) H 07/14/18 20:48 Ur Leukocyte Esterase Negative [place]/uL (NEGATIVE) 07/14/18 20:48 Urine RBC Tntc /hpf (0-2) H 07/14/18 20:48 Urine WBC None /hpf (0-6) 07/14/18 20:48 Ur Epithelial Cells 1 - 3 /hpf (0-5) 07/14/18 20:48 Influenza Typ A,B (EIA) Negative for flu a/b (NEGATIVE) 07/14/18 20:30 - Hospital Course Hospital Course: Pt seen and examined by me. I have reviewed the note of the medical transcription and I agree with it. I have discussed the assessment and plan with the resident. I have reviewed the medications and the last labs. Pt with INDER that improved. He has CKD-3 underlying. He has difficulty in ambulating with gait instability. He is on Donepezil for his Dementia probably Alz type. He is willing to to go TCU today.
--- NOTE | 2018-07-17 23:41 | CON ---
DATE: 07/17/2018 CHIEF COMPLAINT: Worsening dementia, lethargy, and decreased appetite. HISTORY OF PRESENT ILLNESS: This is an 82-year-old male who is seen on the transitional care unit at [facility]. The patient was admitted to the acute care site for worsening dementia, lethargy, and decreasing appetite. History is obtained from the patient's son who is present during the admission. He reports that few days ago, he had come to visit his father. He noted that he was weaker than usual and refused to get out of bed or eat. He recently had been treated for a urinary tract infection and the patient's family was concerned that he possibly had a urinary infection and he brought him to the emergency room where he was then admitted for the above complaints. The patient's son reports that few months ago, the patient did have a urinary infection without having symptoms. He improved mentally with treatment of the urinary tract infection. He reports that the last few months, the patient has been wearing a Depends. He has been wetting appropriately, but does not report when he needs to go to the bathroom. The family has been taking him for timed voiding and he is able to go without any complaints, but then having episodes of incontinence in between voiding. He has no history of any noted kidney stones or other urologic problems. He has been seeing a urologist in the past and actually has an appointment to see me in the office in the near future, although I have not seen him previously. PAST MEDICAL HISTORY: Significant for TIA, dementia, seizures, colon cancer, depression, pacemaker, multiple falls, unsteady gait, urinary tract infection. PAST SURGICAL HISTORY: Colon resection and pacemaker placement. MEDICATIONS: Medications currently include aspirin, Ativan, Ciloxan eyedrops, Colace, Keppra, IV fluids, and vitamin D. He was on Aricept, unclear if recent antibiotics. ALLERGIES: NO KNOWN DRUG ALLERGIES. FAMILY HISTORY: Noncontributory for this admission. SOCIAL HISTORY: No smoking or ETOH use. REVIEW OF SYSTEMS: This is obtained from the patient's son. The patient is also answering questions, but is unable to give a clear history given his dementia. Positives for weakness, lethargy, difficulty ambulating, worsening dementia, urinary frequency, urgency and urge incontinence. Denies any chest pain, palpitations, cough, or shortness of breath. Occasional constipation. Other systems are negative. PHYSICAL EXAMINATION: GENERAL: The patient is awake and alert and answering questions. VITAL SIGNS: He has been afebrile, temp was 98.1; BP 147/79; respirations 18; pulse of 80. NECK: Supple. There is no thyromegaly or adenopathy. CHEST: Reveals normal inspiratory effort. CARDIAC: Shows positive S1, S2. There is trace peripheral edema noted. ABDOMEN: The abdomen is soft, nontender, nondistended. There is no hepatosplenomegaly or costovertebral angle tenderness. : Phallus is normal, uncircumcised. Scrotum is normal. Testes bilaterally descended, nontender, no masses. Epididymides are normal. LABORATORY DATA: WBC count was normal on admission. Creatinine was elevated, however, it improved with IV fluids. Last GFR from this morning 58. Urinalysis showed no wbc, too numerous to count rbc's, negative for nitrites, positive for protein, trace ketones. On radiologic exam, the patient had a renal ultrasound from 07/16, which showed a large exophytic cyst of the upper pole of the right kidney measuring 15 x 10 x 9 cm, it was felt to possibly be a hepatic cyst, simple cyst in the upper pole of the right kidney as well measuring 1.8 x 1.8 x 2.7 cm. IMPRESSION AND PLAN: This is an 82-year-old male with worsening dementia. Urologically, the patient has functional incontinence as well as possible urge incontinence. He does have a history of urinary tract infection, however, his urine culture during this admission grew less than a 1000 CFU/mL. Urinalysis did not show pyuria. There was presence of microhematuria. As for the large renal cyst, this appears to be from the kidney, not the liver, as a prior CT scan did show a large right renal cyst. However, the patient's renal function did improve with IV fluids and appears to be normal and his renal insufficiency was likely from dehydration. The patient appears to be emptying adequately. His bladder is not distended, and he appears to be wetting the Depends appropriately. PLAN: Going forward, regarding the incontinence, if possible, I would recommend the patient to follow up in the office. When he has improved, I would plan on a uroflow and a postvoid residual. Possibly, we can start medications to help him with his emptying if that is a problem. I would try to avoid any anticholinergics for his urge incontinence as this may affect his dementia. We can consider a trial of Myrbetriq, which should not affect it, but given the patient's overall medical condition, I do not feel the comorbidities are worth the risk of the medication at this time. I would follow him conservatively, recheck his renal function when he is adequately hydrated. The cyst appears to be a simple cyst even though it is large, it does not appear to be causing any acute urologic issue. We should check his urine cultures periodically and we can treat him with antibiotics when and if the cultures become positive. Thank you for allowing me to participate in the care of this patient. Unfortunately, given his worsening dementia, lethargy, and not ambulating or wanting to eat at this time, I think we would need a top case assembler to evaluate the patient as it is unclear whether his family will be able to care for him adequately at home unless his condition improves. Kuldeep Mueller MD
== END 2018-07-17 18:05 | DRG 684 ==
LOC: ED 19:02 → ERH 22:05 → 5RNO 07-15 00:07
PROVIDERS: ADMIT Internal Medicine Nephrology; ATTEND Internal Medicine Nephrology
DX: N17.9 Acute kidney failure, unspecified (principal); E86.0 Dehydration; R29.6 Repeated falls; K59.00 Constipation, unspecified; N18.3 Chronic kidney disease, stage 3 (moderate); G30.9 Alzheimer's disease, unspecified; F02.80 Dementia in other diseases classified elsewhere, unspecified severity, without behavioral disturbance, psychotic disturbance, mood disturbance, and anxiety; N28.1 Cyst of kidney, acquired; F32.9 Major depressive disorder, single episode, unspecified; R56.9 Unspecified convulsions; H91.93 Unspecified hearing loss, bilateral; R31.29 Other microscopic hematuria; Z86.73 Personal history of transient ischemic attack (TIA), and cerebral infarction without residual deficits; Z79.82 Long term (current) use of aspirin; Z85.038 Personal history of other malignant neoplasm of large intestine; Z87.440 Personal history of urinary (tract) infections; Z95.0 Presence of cardiac pacemaker; Z97.4 Presence of external hearing-aid

== ENCOUNTER 2018-07-17 18:08 | Inpatient (IN) | payer OTHER, BC ==
[2018-07-17] MEDS ORDERED: Sodium Chloride 0.9% 1,000 ML IV SCH (18:30)
[2018-07-17] MEDS: Ciprofloxacin 0.3% OPTH SOLN OS SCH (22:42)
[2018-07-18] MEDS: DONEPEZIL 10 MG PO SCH ×2 (09:05→18:01)
[2018-07-18] MEDS: MEMANTINE 28 MG PO SCH (09:05)
[2018-07-18] MEDS: Cholecalciferol 1,000 INTLU TAB PO SCH (09:06)
[2018-07-18] MEDS: Ciprofloxacin 0.3% OPTH SOLN OS SCH ×3 (09:37→17:31)
--- NOTE | 2018-07-18 13:27 | HP ---
DATE OF EXAM: 07/18/2018 HISTORY OF PRESENT ILLNESS: This is an 82-year-old male who has come in to the hospital who was admitted because of difficulty walking. He was having acute kidney injury. He was placed on IV fluids and had improvement of his symptoms. The patient is now on the Transitional Care Unit for rehab. He has no complaints of any chest pain. No shortness of breath. No headaches or dizziness. No nausea. No vomiting. Limited review of symptoms because of the patient's underlying dementia. PAST MEDICAL HISTORY 1. Hearing impairment. 2. Pacemaker. 3. Depression. 4. Colon cancer, status post resection. 5. Seizure disorder. 6. TIA. 7. Fall. PAST SURGICAL HISTORY: Colon resection and pacemaker. MEDICATIONS: Reviewed on the medical reconciliation form. ALLERGIES: NO KNOWN DRUG ALLERGIES. SOCIAL HISTORY: He denies smoking or drinking. FAMILY HISTORY: Noncontributory. PHYSICAL EXAMINATION VITAL SIGNS: Temperature is 98.6, pulse of 68, and respirations 18. GENERAL: The patient is lying in bed, comfortable, and in no acute distress. HEENT: Atraumatic and normocephalic. Anicteric sclerae. Moist mucosa. [place] conjunctivae. No oral lesions. NECK: No JVD, anterior and posterior adenopathy, thyromegaly, or bruits. CARDIOVASCULAR: S1 and S2 regular. No murmurs, rubs or gallops. LUNGS: Clear to auscultation bilaterally. No wheezes, rales, or rhonchi. ABDOMEN: Bowel sounds are positive. Soft, nontender and nondistended. No hepatosplenomegaly. No rebound and no guarding. EXTREMITIES: No cyanosis, clubbing, or edema. NEUROLOGIC: No facial asymmetry. Tongue is midline. No uvula deviation. Power is 5/5 upper extremities and lower extremities. Sensation intact in upper extremities and lower extremities. PSYCHIATRIC: The patient denies any hallucinations or delusions. No anxiety. GENITOURINARY: No CVA tenderness. VASCULAR: 2+ pulses in the carotid pulses and pedal pulses. SKIN: No erythema or nodules. SPINE: Shows normal curvature. LABORATORY DATA: The patient's last labs were reviewed. From 07/17/2018, white count of 8.7, hemoglobin 12.6. The patient has a chemistry shows creatinine of 1.2, the potassium is 4.3. The patient had a chest x-ray done that shows no active disease. ASSESSMENT 1. Gait dysfunction. 2. Chronic kidney disease, stage III. 3. Dementia, Alzheimer's type. 4. Seizure disorder. 5. Pacemaker. 6. Constipation. PLAN: The patient is on Cipro for his eyes, because he had some secretions coming out of his left eye. It is better if the patient is on his Keppra for his seizures. He is on vitamin D replacement for his deficiency. He is getting physical therapy. He is currently comfortable. He is working with physical therapy. I did review the patient's hospital records. He had uneventful admission. Kenji Francis MD
[2018-07-19] MEDS: Ciprofloxacin 0.3% OPTH SOLN OS SCH (10:23)
[2018-07-19] MEDS: DONEPEZIL 10 MG PO SCH ×2 (10:24→18:05)
[2018-07-19] MEDS: Cholecalciferol 1,000 INTLU TAB PO SCH (10:25)
[2018-07-19] MEDS: MEMANTINE 28 MG PO SCH (10:25)
--- NOTE | 2018-07-19 12:02 | CP.PCM.PN ---
<Sarah Cervantes - Last Filed: 07/19/18 15:22> Subjective - Date & Time of Evaluation Date of Evaluation: 07/19/18 Time of Evaluation: 07:05 - Subjective Subjective: Pgy3 Medicine progress note for Dr. Francis Patient seen and examined at bedside. As per nursing no acute events overnight. Patient resting comfortably. He denied any acute complaints of chest pain, SOB, abd pain, pain in his legs b/l. Could not complete ROS secondary to patient's dementia. Objective - Vital Signs/Intake and Output Vital Signs (last 24 hours): Temp Pulse Resp BP Pulse Ox 98 F 77 18 138/76 95 07/19/18 10:29 07/19/18 10:29 07/19/18 10:29 07/19/18 10:29 07/19/18 10:29 Intake and Output: 07/19/18 07/19/18 06:59 18:59 Intake Total 420 Balance 420 - Medications Medications: Current Medications Aspirin (Aspirin Chewable) 81 mg PO 0800 [facility]; Protocol Last Admin: 07/19/18 07:51 Dose: 81 mg Cholecalciferol (Vitamin D) 1,000 intlu PO DAILY [facility]; Protocol Last Admin: 07/19/18 10:25 Dose: 1,000 intlu Ciprofloxacin (Ciloxan 0.3% Ophth Soln) 1 drop OS DAILY [facility] Last Admin: 07/19/18 10:23 Dose: 1 drop Docusate Sodium (Colace) 100 mg PO DAILY [facility]; Protocol Last Admin: 07/19/18 10:24 Dose: 100 mg Home Med (Home Med) 0 unit PO BID [facility] Last Admin: 07/19/18 10:24 Dose: 1 unit Home Med (Home Med) 0 unit PO DAILY [facility]; Protocol Last Admin: 07/19/18 10:25 Dose: 1 unit Levetiracetam (Keppra) 250 mg PO BID [facility]; Protocol Last Admin: 07/19/18 10:25 Dose: 250 mg Lorazepam (Ativan) 1 mg IVP Q6H PRN; Protocol PRN Reason: Seizure activity - Additional Findings Additional findings: - Constitutional Appears: Non-toxic, No Acute Distress - Head Exam Head Exam: ATRAUMATIC, NORMAL INSPECTION, NORMOCEPHALIC - Eye Exam Eye Exam: Normal appearance. absent: Conjunctival injection, Scleral icterus - ENT Exam ENT Exam: Mucous Membranes Moist - Respiratory Exam Respiratory Exam: Decreased Breath Sounds, NORMAL BREATHING PATTERN. absent: Rales, Rhonchi, Wheezes, Respiratory Distress - Cardiovascular Exam Cardiovascular Exam: +S1, +S2, RRR - GI/Abdominal Exam GI & Abdominal Exam: Normal Bowel Sounds, Soft. absent: Tenderness - Extremities Exam Extremities exam: Positive for: pedal pulses present. Negative for: pedal edema, tenderness - Neurological Exam Neurological exam: Alert - Psychiatric Exam Psychiatric exam: Normal Affect, Normal Mood - Skin Skin Exam: Dry, Intact, Normal Color, Warm Assessment and Plan - Assessment and Plan (Free Text) Assessment: -INDER on CKD3b- improving -Urineary incontinence -Generalized weakness -Decreased appetite -Unsteady gait -Frequent falls -Dementia- Alzheimer's type -Seizures -Depression -Decreased hearing with b/l hearing aides -TIA -Colon ca s/p resection -Pacemaker -Low vitamin D -Constipation Plan: Patient's vitals, blood work, and imaging noted in chart. Creatinine trending down and improving. Renal u/s reviewed. As per urology, will require outpatient follow up with postvoid residual and consideration of Myrbetiq, however considering side effects and comorbidities will have to family family discussion to weigh the risks vs benefits. Blood and urine cultures negative so far. Head CT on admission unremarkable for acute change. CXR unremarkable and flu negative. Patient afebrile with no leukocytosis. Sports Instructor referral for decreased appetite and PT ordered for unsteady gait and frequent falls. PT recommends TCU. Patient takes Cerefolin Nac, Donepezil, and Namenda for dementia. Continue patient Keppra for seizures- will add on seizure precautions and Ativan prn for seizure activity. Continue home ASA. Patient also on colace for constipation which will be continued and vitamin D for low vitamin D which will be continued. Fall precautions in place and patient is on a HHD. Patient to continue working with physical therapy and we will continue to monitor at this time. Discussed with Dr. Tito Cervantes PGY3 <Kenji Francis - Last Filed: 07/19/18 16:09> Objective - Vital Signs/Intake and Output Vital Signs (last 24 hours): Temp Pulse Resp BP Pulse Ox 98 F 77 18 138/76 95 07/19/18 10:29 07/19/18 10:29 07/19/18 10:29 07/19/18 10:29 07/19/18 10:29 Intake and Output: 07/19/18 07/19/18 06:59 18:59 Intake Total 420 Balance 420 - Medications Medications: Current Medications Aspirin (Aspirin Chewable) 81 mg PO 0800 [facility]; Protocol Last Admin: 07/19/18 07:51 Dose: 81 mg Cholecalciferol (Vitamin D) 1,000 intlu PO DAILY [facility]; Protocol Last Admin: 07/19/18 10:25 Dose: 1,000 intlu Ciprofloxacin (Ciloxan 0.3% Ophth Soln) 1 drop OS DAILY [facility] Last Admin: 07/19/18 10:23 Dose: 1 drop Docusate Sodium (Colace) 100 mg PO DAILY [facility]; Protocol Last Admin: 07/19/18 10:24 Dose: 100 mg Home Med (Home Med) 0 unit PO BID [facility] Last Admin: 07/19/18 10:24 Dose: 1 unit Home Med (Home Med) 0 unit PO DAILY [facility]; Protocol Last Admin: 07/19/18 10:25 Dose: 1 unit Levetiracetam (Keppra) 250 mg PO BID [facility]; Protocol Last Admin: 07/19/18 10:25 Dose: 250 mg Lorazepam (Ativan) 1 mg IVP Q6H PRN; Protocol PRN Reason: Seizure activity Assessment and Plan - Assessment and Plan (Free Text) Plan: Pt seen and examined by me. I have reviewed the note of the center medical and lab director and I agree with it. I have discussed the assessment and plan with the resident. I have reviewed the medications and the last labs. Pt with Gait instability and dysfunction. He has CKD-3 that is stable and will get routine labs to follow.Dem entia- Alzh that is unchanged. Pt has a pacemaker. He has Sz d/o and is on Keppra. He is getting PT on TCU. He is on ASA. Continue with colace for constipation.
[2018-07-20 07:18] LABS: HEMOGLOBIN 14.8 g/dL (14.0-18.0); MEAN CELL VOLUME 90.9 fl (80.0-105.0); MEAN PLATELET VOLUME 8.6 fl (7.0-11.0); RBC 4.93 10^6/uL (3.5-6.1); RED CELL DISTRIBUTION WIDTH 12.8 % (11.5-14.5); WHITE BLOOD COUNT 9.4 10^3/uL (4.5-11.0)
[2018-07-20 07:47] LABS: ALB/GLOB RATIO 1.1 (1.1-1.8); ALBUMIN 3.9 g/dL (3.0-4.8); ALT/SGPT < 6 U/L (7-56); AST/SGOT 18 U/L (17-59); BLOOD UREA NITROGEN 24 mg/dL (7-21); CALCIUM 10.1 mg/dL (8.4-10.5); GFR NON-AFRICAN AMERICAN > 60
[2018-07-20] MEDS: Cholecalciferol 1,000 INTLU TAB PO SCH (09:20)
[2018-07-20] MEDS: DONEPEZIL 10 MG PO SCH ×2 (09:21→17:10)
[2018-07-20] MEDS: MEMANTINE 28 MG PO SCH (09:21)
[2018-07-20] MEDS: Ciprofloxacin 0.3% OPTH SOLN OS SCH (09:22)
[2018-07-21] MEDS: Ciprofloxacin 0.3% OPTH SOLN OS SCH (11:04)
[2018-07-21] MEDS: DONEPEZIL 10 MG PO SCH ×2 (11:05→18:22)
[2018-07-21] MEDS: Cholecalciferol 1,000 INTLU TAB PO SCH (11:06)
[2018-07-21] MEDS: MEMANTINE 28 MG PO SCH (11:06)
[2018-07-22] MEDS: MEMANTINE 28 MG PO SCH (10:45)
[2018-07-22] MEDS: DONEPEZIL 10 MG PO SCH ×2 (10:45→17:25)
[2018-07-22] MEDS: Cholecalciferol 1,000 INTLU TAB PO SCH (10:46)
[2018-07-22] MEDS: Ciprofloxacin 0.3% OPTH SOLN OS SCH (10:47)
--- NOTE | 2018-07-22 12:41 | CP.PCM.PN ---
<Bruno Deleon - Last Filed: 07/22/18 12:38> Subjective - Date & Time of Evaluation Date of Evaluation: 07/22/18 Time of Evaluation: 12:39 - Subjective Subjective: PGY-[address] Francis Patient seen and examined at bedside. As per nursing no acute events overnight. Patient resting comfortably. He denied any acute complaints of chest pain, SOB, abd pain, pain in his legs b/l. Could not complete ROS secondary to patient's dementia. Objective - Vital Signs/Intake and Output Vital Signs (last 24 hours): Temp Pulse Resp BP Pulse Ox 98 F 82 20 124/79 99 07/21/18 16:00 07/22/18 12:01 07/21/18 16:00 07/21/18 16:00 07/22/18 12:01 - Medications Medications: Current Medications Aspirin (Aspirin Chewable) 81 mg PO 0800 [facility]; Protocol Last Admin: 07/22/18 08:26 Dose: 81 mg Cholecalciferol (Vitamin D) 1,000 intlu PO DAILY [facility]; Protocol Last Admin: 07/22/18 10:46 Dose: 1,000 intlu Docusate Sodium (Colace) 100 mg PO DAILY [facility]; Protocol Last Admin: 07/22/18 10:45 Dose: 100 mg Home Med (Home Med) 0 unit PO BID [facility] Last Admin: 07/22/18 10:45 Dose: 1 unit Home Med (Home Med) 0 unit PO DAILY [facility]; Protocol Last Admin: 07/22/18 10:45 Dose: 1 unit Levetiracetam (Keppra) 250 mg PO BID [facility]; Protocol Last Admin: 07/22/18 10:46 Dose: 250 mg - Labs Labs: 07/20/18 06:30 07/20/18 06:30 - Additional Findings Additional findings: - Constitutional Appears: Non-toxic, No Acute Distress - Head Exam Head Exam: ATRAUMATIC, NORMAL INSPECTION, NORMOCEPHALIC - Eye Exam Eye Exam: Normal appearance. absent: Conjunctival injection, Scleral icterus - ENT Exam ENT Exam: Mucous Membranes Moist - Respiratory Exam Respiratory Exam: Decreased Breath Sounds, NORMAL BREATHING PATTERN. absent: Rales, Rhonchi, Wheezes, Respiratory Distress - Cardiovascular Exam Cardiovascular Exam: +S1, +S2, RRR - GI/Abdominal Exam GI & Abdominal Exam: Normal Bowel Sounds, Soft. absent: Tenderness - Extremities Exam Extremities exam: Positive for: pedal pulses present. Negative for: pedal edema, tenderness - Neurological Exam Neurological exam: Alert - Psychiatric Exam Psychiatric exam: Normal Affect, Normal Mood - Skin Skin Exam: Dry, Intact, Normal Color, Warm Assessment and Plan - Assessment and Plan (Free Text) Plan: -INDER on CKD3b- improving -Urineary incontinence -Generalized weakness -Decreased appetite -Unsteady gait -Frequent falls -Dementia- Alzheimer's type -Seizures -Depression -Decreased hearing with b/l hearing aides -TIA -Colon ca s/p resection -Pacemaker -Low vitamin D -Constipation Plan: Currently in TCU receiving rehab - plan is for discharge home on 07/25/18. Patient's vitals, blood work, and imaging noted in chart. Creatinine trending down and improving. Renal u/s reviewed. As per urology, will require outpatient follow up with postvoid residual and consideration of Myrbetiq, however considering side effects and comorbidities will have to family family discussion to weigh the risks vs benefits. Blood and urine cultures negative so far. Head CT on admission unremarkable for acute change. CXR unremarkable and flu negative. Patient afebrile with no leukocytosis. Staff Pharmacist referral for decreased appetite and PT ordered for unsteady gait and frequent falls. Patient takes Cerefolin Nac, Donepezil, and Namenda for dementia. Continue patient Keppra for seizures- will add on seizure precautions and Ativan prn for seizure activity. Continue home ASA. Patient also on colace for constipation which will be continued and vitamin D for low vitamin D which will be continued. Fall precautions in place and patient is on a HHD. Patient to continue working with physical therapy and we will continue to monitor at this time. Discussed with Dr. Francis <Kenji Francsi S - Last Filed: 07/22/18 20:42> Objective - Vital Signs/Intake and Output Vital Signs (last 24 hours): Temp Pulse Resp BP Pulse Ox 97.7 F 76 20 118/73 96 07/22/18 16:00 07/22/18 16:00 07/22/18 16:00 07/22/18 16:00 07/22/18 16:00 - Medications Medications: Current Medications Aspirin (Aspirin Chewable) 81 mg PO 0800 [facility]; Protocol Last Admin: 07/22/18 08:26 Dose: 81 mg Cholecalciferol (Vitamin D) 1,000 intlu PO DAILY [facility]; Protocol Last Admin: 07/22/18 10:46 Dose: 1,000 intlu Docusate Sodium (Colace) 100 mg PO DAILY [facility]; Protocol Last Admin: 07/22/18 10:45 Dose: 100 mg Home Med (Home Med) 0 unit PO BID [facility] Last Admin: 07/22/18 17:25 Dose: 1 unit Home Med (Home Med) 0 unit PO DAILY [facility]; Protocol Last Admin: 07/22/18 10:45 Dose: 1 unit Levetiracetam (Keppra) 250 mg PO BID [facility]; Protocol Last Admin: 07/22/18 17:25 Dose: 250 mg - Labs Labs: 07/20/18 06:30 07/20/18 06:30 Assessment and Plan - Assessment and Plan (Free Text) Plan: Pt seen and examined by me. I have reviewed the note of the expert medical writer and I agree with it. I have discussed the assessment and plan with the resident. I have reviewed the medications and the last labs. INDER is improved. Pt is getting PT. He has not pain. Eating well. D/C Ativan and continue with Keppra for Sz.
[2018-07-22 16:23] VITALS: TEMP 97.7
[2018-07-23] MEDS: MEMANTINE 28 MG PO SCH (11:12)
[2018-07-23] MEDS: Cholecalciferol 1,000 INTLU TAB PO SCH (11:12)
[2018-07-23] MEDS: DONEPEZIL 10 MG PO SCH ×2 (11:12→17:41)
--- NOTE | 2018-07-23 12:02 | CP.PCM.PN ---
<Bruno Deleon - Last Filed: 07/23/18 11:58> Subjective - Date & Time of Evaluation Date of Evaluation: 07/23/18 Time of Evaluation: 11:58 - Subjective Subjective: PGY-[address] Francis No acute events noted overnight. Patient had no complaints of pain or discomfort. Objective - Vital Signs/Intake and Output Vital Signs (last 24 hours): Temp Pulse Resp BP Pulse Ox 97.7 F 76 20 118/73 96 07/22/18 16:00 07/22/18 16:00 07/22/18 16:00 07/22/18 16:00 07/22/18 16:00 - Medications Medications: Current Medications Aspirin (Aspirin Chewable) 81 mg PO 0800 [facility]; Protocol Last Admin: 07/23/18 08:01 Dose: 81 mg Cholecalciferol (Vitamin D) 1,000 intlu PO DAILY [facility]; Protocol Last Admin: 07/23/18 11:12 Dose: 1,000 intlu Docusate Sodium (Colace) 100 mg PO DAILY [facility]; Protocol Last Admin: 07/23/18 11:12 Dose: 100 mg Home Med (Home Med) 0 unit PO BID [facility] Last Admin: 07/23/18 11:12 Dose: 1 unit Home Med (Home Med) 0 unit PO DAILY [facility]; Protocol Last Admin: 07/23/18 11:12 Dose: 1 unit Levetiracetam (Keppra) 250 mg PO BID [facility]; Protocol Last Admin: 07/23/18 11:12 Dose: 250 mg - Labs Labs: 07/20/18 06:30 07/20/18 06:30 - Additional Findings Additional findings: - Constitutional Appears: Non-toxic, No Acute Distress - Head Exam Head Exam: ATRAUMATIC, NORMAL INSPECTION, NORMOCEPHALIC - Eye Exam Eye Exam: Normal appearance. absent: Conjunctival injection, Scleral icterus - ENT Exam ENT Exam: Mucous Membranes Moist - Respiratory Exam Respiratory Exam: Decreased Breath Sounds, NORMAL BREATHING PATTERN. absent: Rales, Rhonchi, Wheezes, Respiratory Distress - Cardiovascular Exam Cardiovascular Exam: +S1, +S2, RRR - GI/Abdominal Exam GI & Abdominal Exam: Normal Bowel Sounds, Soft. absent: Tenderness - Extremities Exam Extremities exam: Positive for: pedal pulses present. Negative for: pedal edema, tenderness - Neurological Exam Neurological exam: Alert - Psychiatric Exam Psychiatric exam: Normal Affect, Normal Mood - Skin Skin Exam: Dry, Intact, Normal Color, Warm Assessment and Plan - Assessment and Plan (Free Text) Plan: -INDER on CKD3b- improving -Urineary incontinence -Generalized weakness -Decreased appetite -Unsteady gait -Frequent falls -Dementia- Alzheimer's type -Seizures -Depression -Decreased hearing with b/l hearing aides -TIA -Colon ca s/p resection -Pacemaker -Low vitamin D -Constipation Plan: Currently in TCU receiving rehab - plan is for discharge home on 07/25/18. Patient's vitals, blood work, and imaging noted in chart. Creatinine trending down and improving. Renal u/s reviewed. As per urology, will require outpatient follow up with postvoid residual and consideration of Myrbetiq, however considering side effects and comorbidities will have to family family discussion to weigh the risks vs benefits. Blood and urine cultures negative so far. Head CT on admission unremarkable for acute change. CXR unremarkable and flu negative. Patient afebrile with no leukocytosis. Flaker Tender referral for decreased appetite and PT ordered for unsteady gait and frequent falls. Patient takes Cerefolin Nac, Donepezil, and Namenda for dementia. Continue patient Keppra for seizures- will add on seizure precautions. Ativan prn was discontinued. Continue home ASA. Patient also on vitamin D for low vitamin D which will be continued. Fall precautions in place and patient is on a heart healthy diet. Patient to continue working with physical therapy and doing well and we will continue to monitor at this time. Discussed with Dr. Francis <Kenji Francis S - Last Filed: 07/23/18 14:21> Objective - Vital Signs/Intake and Output Vital Signs (last 24 hours): Temp Pulse Resp BP Pulse Ox 97.7 F 76 20 118/73 96 07/22/18 16:00 07/22/18 16:00 07/22/18 16:00 07/22/18 16:00 07/22/18 16:00 - Medications Medications: Current Medications Aspirin (Aspirin Chewable) 81 mg PO 0800 [facility]; Protocol Last Admin: 07/23/18 08:01 Dose: 81 mg Cholecalciferol (Vitamin D) 1,000 intlu PO DAILY [facility]; Protocol Last Admin: 07/23/18 11:12 Dose: 1,000 intlu Docusate Sodium (Colace) 100 mg PO DAILY [facility]; Protocol Last Admin: 07/23/18 11:12 Dose: 100 mg Home Med (Home Med) 0 unit PO BID [facility] Last Admin: 07/23/18 11:12 Dose: 1 unit Home Med (Home Med) 0 unit PO DAILY [facility]; Protocol Last Admin: 07/23/18 11:12 Dose: 1 unit Levetiracetam (Keppra) 250 mg PO BID [facility]; Protocol Last Admin: 07/23/18 11:12 Dose: 250 mg - Labs Labs: 07/20/18 06:30 07/20/18 06:30 Assessment and Plan - Assessment and Plan (Free Text) Plan: Patient was seen and examined by me. I have reviewed the note of the director global medical affairs and have gone over the plan of care. I agree with the note. I have reviewed the medications and the last labs. Pt with gait instability and is on T CU for rehab. Pt is doing well with PT. Pt will continue with Namenda and Donepzil for Dementia. On Keppra for Sz. Pt is eating well.
[2018-07-24] MEDS: DONEPEZIL 10 MG PO SCH ×2 (10:50→17:46)
[2018-07-24] MEDS: MEMANTINE 28 MG PO SCH (10:51)
[2018-07-24] MEDS: Cholecalciferol 1,000 INTLU TAB PO SCH (10:51)
[2018-07-24 12:15] VITALS: BP 149/86; RESP 12
[2018-07-24 13:15] VITALS: PULSE 72; O2SAT 95
--- NOTE | 2018-07-24 15:30 | CP.PCM.PN ---
<Bruno Deleon - Last Filed: 07/24/18 15:29> Subjective - Date & Time of Evaluation Date of Evaluation: 07/24/18 Time of Evaluation: 15:29 - Subjective Subjective: PGY-[address] Francis No acute events noted overnight. Patient had no complaints of pain or discomfort. Objective - Vital Signs/Intake and Output Vital Signs (last 24 hours): Temp Pulse Resp BP Pulse Ox 97.7 F 72 12 149/86 95 07/22/18 16:00 07/24/18 13:06 07/24/18 10:00 07/24/18 10:00 07/24/18 13:06 Intake and Output: 07/24/18 07/24/18 06:59 18:59 Intake Total 340 Balance 340 - Medications Medications: Current Medications Aspirin (Aspirin Chewable) 81 mg PO 0800 [facility]; Protocol Last Admin: 07/24/18 07:46 Dose: 81 mg Cholecalciferol (Vitamin D) 1,000 intlu PO DAILY [facility]; Protocol Last Admin: 07/24/18 10:51 Dose: 1,000 intlu Docusate Sodium (Colace) 100 mg PO DAILY [facility]; Protocol Last Admin: 07/24/18 10:50 Dose: 100 mg Home Med (Home Med) 0 unit PO BID [facility] Last Admin: 07/24/18 10:50 Dose: 1 unit Home Med (Home Med) 0 unit PO DAILY [facility]; Protocol Last Admin: 07/24/18 10:51 Dose: 1 unit Levetiracetam (Keppra) 250 mg PO BID [facility]; Protocol Last Admin: 07/24/18 10:51 Dose: 250 mg - Labs Labs: 07/20/18 06:30 07/20/18 06:30 - Additional Findings Additional findings: - Constitutional Appears: Non-toxic, No Acute Distress - Head Exam Head Exam: ATRAUMATIC, NORMAL INSPECTION, NORMOCEPHALIC - Eye Exam Eye Exam: Normal appearance. absent: Conjunctival injection, Scleral icterus - ENT Exam ENT Exam: Mucous Membranes Moist - Respiratory Exam Respiratory Exam: Decreased Breath Sounds, NORMAL BREATHING PATTERN. absent: Rales, Rhonchi, Wheezes, Respiratory Distress - Cardiovascular Exam Cardiovascular Exam: +S1, +S2, RRR - GI/Abdominal Exam GI & Abdominal Exam: Normal Bowel Sounds, Soft. absent: Tenderness - Extremities Exam Extremities exam: Positive for: pedal pulses present. Negative for: pedal edema, tenderness - Neurological Exam Neurological exam: Alert - Psychiatric Exam Psychiatric exam: Normal Affect, Normal Mood - Skin Skin Exam: Dry, Intact, Normal Color, Warm Assessment and Plan - Assessment and Plan (Free Text) Plan: -INDER on CKD3b- improving -Urineary incontinence -Generalized weakness -Decreased appetite -Unsteady gait -Frequent falls -Dementia- Alzheimer's type -Seizures -Depression -Decreased hearing with b/l hearing aides -TIA -Colon ca s/p resection -Pacemaker -Low vitamin D -Constipation Plan: Currently in TCU receiving rehab - plan is for discharge home on 07/25/18. Pt is doing well with PT. Patient's vitals, blood work, and imaging noted in chart. Cr eatinine trending down and improving. Renal u/s reviewed. As per urology, will require outpatient follow up with postvoid residual and consideration of Myrbetiq, however considering side effects and comorbidities will have to family family discussion to weigh the risks vs benefits. Blood and urine cultures negative so far. Head CT on admission unremarkable for acute change. CXR unremarkable and flu negative. Patient afebrile with no leukocytosis. Tooling Manager referral for decreased appetite and PT ordered for unsteady gait and frequent falls. Patient takes Cerefolin Nac, Donepezil, and Namenda for dementia. Continue patient Keppra for seizures- will add on seizure precautions. Ativan prn was discontinued. Continue home ASA. Patient also on vitamin D for low vitamin D which will be continued. Fall precautions in place and patient is on a heart healthy diet. Patient to continue working with physical therapy and doing well and we will continue to monitor at this time. Discussed with Dr. Francis <Kenji Francis S - Last Filed: 07/24/18 17:17> Objective - Vital Signs/Intake and Output Vital Signs (last 24 hours): Temp Pulse Resp BP Pulse Ox 97.7 F 72 12 149/86 95 07/22/18 16:00 07/24/18 13:06 07/24/18 10:00 07/24/18 10:00 07/24/18 13:06 Intake and Output: 07/24/18 07/24/18 06:59 18:59 Intake Total 340 Balance 340 - Medications Medications: Current Medications Aspirin (Aspirin Chewable) 81 mg PO 0800 [facility]; Protocol Last Admin: 07/24/18 07:46 Dose: 81 mg Cholecalciferol (Vitamin D) 1,000 intlu PO DAILY [facility]; Protocol Last Admin: 07/24/18 10:51 Dose: 1,000 intlu Docusate Sodium (Colace) 100 mg PO DAILY [facility]; Protocol Last Admin: 07/24/18 10:50 Dose: 100 mg Home Med (Home Med) 0 unit PO BID [facility] Last Admin: 07/24/18 10:50 Dose: 1 unit Home Med (Home Med) 0 unit PO DAILY [facility]; Protocol Last Admin: 07/24/18 10:51 Dose: 1 unit Levetiracetam (Keppra) 250 mg PO BID [facility]; Protocol Last Admin: 07/24/18 10:51 Dose: 250 mg - Labs Labs: 07/20/18 06:30 07/20/18 06:30 Assessment and Plan - Assessment and Plan (Free Text) Plan: Pt seen and examined by me. I have reviewed the note of the medical illustrator and I agree with it. I have discussed the assessment and plan with the resident. I have reviewed the medications and the last labs.Pt with gait instability. He is improving with PT. He has Dementia and is on Namenda and Donepezil. He is eating well and denies any pain. He has been sleeping well. He is on Keppra for his Sz d/o. He is on ASA for his history of TIA.
[2018-07-25] MEDS: DONEPEZIL 10 MG PO SCH (09:20)
[2018-07-25] MEDS: Cholecalciferol 1,000 INTLU TAB PO SCH (09:21)
[2018-07-25] MEDS: MEMANTINE 28 MG PO SCH (09:21)
--- NOTE | 2018-07-25 10:11 | CP.PCM.DIS ---
<PanchoBruno R - Last Filed: 07/25/18 10:08> Provider - Provider Date of Admission: 07/17/18 18:08 Attending physician: Kenji Francis MD Primary care physician: Bony Jerry MD Consults: 07/24/18 15:38 VNA [Case Management Referral] Routine Comment: Physician Instructions: Reason For Exam: VNA SN for home care evaluation. Reason for Referral: VNA Eval Time Spent in preparation of Discharge (in minutes): 41 Diagnosis - Discharge Diagnosis (1) Unsteady gait Status: Chronic Priority: High (2) Generalized weakness Status: Resolved Priority: High (3) Alzheimer's dementia Status: Chronic Priority: High (4) UTI (urinary tract infection) Status: Resolved Priority: High Hospital Course - Lab Results Lab Results: Most Recent Lab Values WBC 9.4 10^3/uL (4.5-11.0) 07/20/18 06:30 RBC 4.93 10^6/uL (3.5-6.1) 07/20/18 06:30 Hgb 14.8 g/dL (14.0-18.0) D 07/20/18 06:30 Hct 44.8 % (42.0-52.0) 07/20/18 06:30 MCV 90.9 fl (80.0-105.0) 07/20/18 06:30 MCH 30.0 pg (25.0-35.0) 07/20/18 06:30 MCHC 33.0 g/dl (31.0-37.0) 07/20/18 06:30 RDW 12.8 % (11.5-14.5) 07/20/18 06:30 Plt Count 215 10^3/uL (120.0-450.0) 07/20/18 06:30 MPV 8.6 fl (7.0-11.0) 07/20/18 06:30 Sodium 140 mmol/L (132-148) 07/20/18 06:30 Potassium 5.2 mmol/L (3.6-5.0) H 07/20/18 06:30 Chloride 105 mmol/L (98-107) 07/20/18 06:30 Carbon Dioxide 30 mmol/L (21-33) 07/20/18 06:30 Anion Gap 11 (10-20) 07/20/18 06:30 BUN 24 mg/dL (7-21) H 07/20/18 06:30 Creatinine 1.0 mg/dl (0.8-1.5) 07/20/18 06:30 Est GFR ( Amer) > 60 07/20/18 06:30 Est GFR (Non-Af Amer) > 60 07/20/18 06:30 Random Glucose 97 mg/dL (70-110) 07/20/18 06:30 Calcium 10.1 mg/dL (8.4-10.5) 07/20/18 06:30 Phosphorus 4.0 mg/dL (2.5-4.5) 07/20/18 06:30 Magnesium 2.0 mg/dL (1.7-2.2) 07/20/18 06:30 Total Bilirubin 0.5 mg/dL (0.2-1.3) 07/20/18 06:30 AST 18 U/L (17-59) 07/20/18 06:30 ALT < 6 U/L (7-56) L 07/20/18 06:30 Alkaline Phosphatase 95 U/L (38-126) 07/20/18 06:30 Total Protein 7.5 g/dL (5.8-8.3) 07/20/18 06:30 Albumin 3.9 g/dL (3.0-4.8) 07/20/18 06:30 Globulin 3.6 gm/dL 07/20/18 06:30 Albumin/Globulin Ratio 1.1 (1.1-1.8) 07/20/18 06:30 - Hospital Course Hospital Course: -INDER on CKD3b- improving -Urineary incontinence -Generalized weakness -Decreased appetite -Unsteady gait -Frequent falls -Dementia- Alzheimer's type -Seizures -Depression -Decreased hearing with b/l hearing aides -TIA -Colon ca s/p resection -Pacemaker -Low vitamin D -Constipation Plan: Currently in TCU receiving rehab - plan is for discharge home on 07/25/18. Pt is doing well with PT. Patient's vitals, blood work, and imaging noted in chart. Creatinine trending down and improving. Renal u/s reviewed. As per urology, will require outpatient follow up with postvoid residual and consideration of Myrbetiq, however considering side effects and comorbidities will have to family family discussion to weigh the risks vs benefits. Blood and urine cultures negative so far. Head CT on admission unremarkable for acute change. CXR unremarkable and flu negative. Patient afebrile with no leukocytosis. Television Equipment Operator referral for decreased appetite and PT ordered for unsteady gait and frequent falls. Patient takes Cerefolin Nac, Donepezil, and Namenda for dementia. Continue patient Keppra for seizures- will add on seizure precautions. Ativan prn was discontinued. Continue home ASA. Patient also on vitamin D for low vitamin D which will be continued. Fall precautions in place and patient is on a heart healthy diet. Patient to continue working with physical therapy and doing well and we will continue to monitor at this time. Discharge Exam - Additional Findings Additional findings: - Constitutional Appears: Non-toxic, No Acute Distress - Head Exam Head Exam: ATRAUMATIC, NORMAL INSPECTION, NORMOCEPHALIC - Eye Exam Eye Exam: Normal appearance. absent: Conjunctival injection, Scleral icterus - ENT Exam ENT Exam: Mucous Membranes Moist - Respiratory Exam Respiratory Exam: Decreased Breath Sounds, NORMAL BREATHING PATTERN. absent: Rales, Rhonchi, Wheezes, Respiratory Distress - Cardiovascular Exam Cardiovascular Exam: +S1, +S2, RRR - GI/Abdominal Exam GI & Abdominal Exam: Normal Bowel Sounds, Soft. absent: Tenderness - Extremities Exam Extremities exam: Positive for: pedal pulses present. Negative for: pedal edema, tenderness - Neurological Exam Neurological exam: Alert - Psychiatric Exam Psychiatric exam: Normal Affect, Normal Mood - Skin Skin Exam: Dry, Intact, Normal Color, Warm Discharge Plan - Follow Up Plan Condition: GOOD Disposition: HOME/ ROUTINE Instructions: Preventing Falls in the Older Adult, Urinary Tract Infection, Adult (DC), Generalized Weakness (DC) Referrals: Bony Jerry MD [Primary Care Provider] - <Kenji Francis - Last Filed: 07/25/18 17:23> Provider - Provider Date of Admission: 07/17/18 18:08 Attending physician: Kenji Francis MD Primary care physician: Bony Jerry MD Consults: 07/24/18 15:38 VNA [Case Management Referral] Routine Comment: Physician Instructions: Reason For Exam: VNA SN for home care evaluation. Reason for Referral: [facility] Course - Lab Results Lab Results: Most Recent Lab Values WBC 9.4 10^3/uL (4.5-11.0) 07/20/18 06:30 RBC 4.93 10^6/uL (3.5-6.1) 07/20/18 06:30 Hgb 14.8 g/dL (14.0-18.0) D 07/20/18 06:30 Hct 44.8 % (42.0-52.0) 07/20/18 06:30 MCV 90.9 fl (80.0-105.0) 07/20/18 06:30 MCH 30.0 pg (25.0-35.0) 07/20/18 06:30 MCHC 33.0 g/dl (31.0-37.0) 07/20/18 06:30 RDW 12.8 % (11.5-14.5) 07/20/18 06:30 Plt Count 215 10^3/uL (120.0-450.0) 07/20/18 06:30 MPV 8.6 fl (7.0-11.0) 07/20/18 06:30 Sodium 140 mmol/L (132-148) 07/20/18 06:30 Potassium 5.2 mmol/L (3.6-5.0) H 07/20/18 06:30 Chloride 105 mmol/L (98-107) 07/20/18 06:30 Carbon Dioxide 30 mmol/L (21-33) 07/20/18 06:30 Anion Gap 11 (10-20) 07/20/18 06:30 BUN 24 mg/dL (7-21) H 07/20/18 06:30 Creatinine 1.0 mg/dl (0.8-1.5) 07/20/18 06:30 Est GFR ( Amer) > 60 07/20/18 06:30 Est GFR (Non-Af Amer) > 60 07/20/18 06:30 Random Glucose 97 mg/dL (70-110) 07/20/18 06:30 Calcium 10.1 mg/dL (8.4-10.5) 07/20/18 06:30 Phosphorus 4.0 mg/dL (2.5-4.5) 07/20/18 06:30 Magnesium 2.0 mg/dL (1.7-2.2) 07/20/18 06:30 Total Bilirubin 0.5 mg/dL (0.2-1.3) 07/20/18 06:30 AST 18 U/L (17-59) 07/20/18 06:30 ALT < 6 U/L (7-56) L 07/20/18 06:30 Alkaline Phosphatase 95 U/L (38-126) 07/20/18 06:30 Total Protein 7.5 g/dL (5.8-8.3) 07/20/18 06:30 Albumin 3.9 g/dL (3.0-4.8) 07/20/18 06:30 Globulin 3.6 gm/dL 07/20/18 06:30 Albumin/Globulin Ratio 1.1 (1.1-1.8) 07/20/18 06:30 - Hospital Course Hospital Course: Patient was seen and examined by me. I have reviewed the note of the medical reception and have gone over the plan of care. I agree with the note. I have reviewed the medications and the last labs. Pt with INDER that has improved. He was on TCU for rehab and did improved. He is being discharged today. He will continue his Dementia meds. He is on Keppra for his Sz d/o. He will continue with his ASA for his TIA.
== END 2018-07-25 10:45 | disposition home or self-care (01) | DRG 690 ==
LOC: TRCU 18:08
PROVIDERS: ADMIT Internal Medicine Nephrology; ATTEND Internal Medicine Nephrology
PROC: F07Z9FZ Gait Training/Functional Ambulation Treatment using Assistive, Adaptive, Supportive or Protective Equipment (ICD-10-PCS; principal; 2018-07-18)
PROC: F07M6ZZ Therapeutic Exercise Treatment of Musculoskeletal System - Whole Body (ICD-10-PCS; 2018-07-18)
PROC: F08Z1ZZ Dressing Techniques Treatment (ICD-10-PCS; 2018-07-18)
PROC: F08Z2ZZ Grooming/Personal Hygiene Treatment (ICD-10-PCS; 2018-07-18)
DX: N39.0 Urinary tract infection, site not specified (principal); N17.9 Acute kidney failure, unspecified; G30.9 Alzheimer's disease, unspecified; F02.80 Dementia in other diseases classified elsewhere, unspecified severity, without behavioral disturbance, psychotic disturbance, mood disturbance, and anxiety; F32.89 Other specified depressive episodes; G40.909 Epilepsy, unspecified, not intractable, without status epilepticus; Z86.73 Personal history of transient ischemic attack (TIA), and cerebral infarction without residual deficits; Z85.038 Personal history of other malignant neoplasm of large intestine; N18.3 Chronic kidney disease, stage 3 (moderate); K59.00 Constipation, unspecified; H91.90 Unspecified hearing loss, unspecified ear; R29.6 Repeated falls; R32 Unspecified urinary incontinence; Z90.49 Acquired absence of other specified parts of digestive tract; Z95.0 Presence of cardiac pacemaker; E55.9 Vitamin D deficiency, unspecified

== ENCOUNTER 2018-10-19 10:20 | Inpatient (IN) | payer MEDICARE, BC ==
--- NOTE | 2018-10-19 10:50 | ED PDOC ---
Arrival/HPI - General Chief Complaint: Weakness/Neurological Deficit Time Seen by Provider: 10/19/18 10:27 Historian: Family - History of Present Illness Narrative History of Present Illness (Text): 10/19/18 10:42 83 year old male, whose past medical history includes TIA, dementia, seizures, colon ca s/p resection, depression, pacemaker, b/l hearing aides, unsteady gait, multiple falls, presents to the emergency department for complaints of generalized weakness and fatigue for the past 2-3 days. Family reports that she is unable to get him out of bed. Reports specific left upper extremity weakness which is new for approximately 1 week. She also reports when patient gets like this, he usually has a UTI. Patient is not a smoker or drinker. Denies any history of fever, cough, congestion, chest pain, shortness of breath, nausea, vomiting, diarrhea, urinary symptoms, back pain, neck pain, headache, dizziness, or any other complaints. PMD: Dr. Jerry Time/Duration: Other (2-3 days) Symptom Onset: Gradual Symptom Course: Unchanged Activities at Onset: Light Context: Home Associated Symptoms (Text): 10/19/18 11:14 reports generalized weakness and fatigue for the last several days and she is unable to get him out of bed. She also complains of focal left upper extremity weakness for approximately 1 week. She states that when he gets like this he usually has a urinary tract infection. There has been no fever. No cough. No vomiting or diarrhea. Poor p.o. intake yesterday. Past Medical History - Provider Review Nursing Documentation Reviewed: Yes - Infectious Disease Hx of Infectious Diseases: None - Tetanus Immunization Tetanus Immunization: Up to Date - Cardiac Hx Cardiac Disorders: Yes Hx Hypertension: Yes Hx Pacemaker: Yes - Pulmonary Hx Respiratory Disorders: No Hx Asthma: No - Neurological HX Cerebrovascular Accident: Yes Hx Dementia: Yes Hx Seizures: Yes Hx Transient Ischemic Attacks (TIA): Yes - HEENT Hx HEENT Disorder: Yes (LEFT EYE -DECREASED VISION. "HOLE IN RETINA"HAD SX) Hx Deafness: Yes (BILATERAL HEARING AIDES) - Renal Hx Renal Disorder: No - Endocrine/Metabolic Hx Endocrine Disorders: No - Hematological/Oncological Hx Blood Disorders: Yes Hx Cancer: Yes (COLON CA WITH COLON RESECTION NO RADIATION OR CHEMO) - Integumentary Hx Dermatological Disorder: No - Musculoskeletal/Rheumatological Hx Falls: Yes - Gastrointestinal Hx Gastrointestinal Disorders: Yes (COLON CA WITH COLON RESECTION) - Genitourinary/Gynecological Hx Reproductive Disorders: No - Psychiatric Hx Psychophysiologic Disorder: Yes Hx Depression: Yes Hx Substance Use: No - Surgical History Other/Comment: colon resection, pacemaker insertion - Anesthesia Hx Anesthesia: Yes Hx Anesthesia Reactions: No Hx Malignant Hyperthermia: No - Suicidal Assessment Feels Threatened In Home Enviroment: No Family/Social History - Physician Review Nursing Documentation Reviewed: Yes Family/Social History: No Known Family HX Smoking Status: Never Smoked Hx Alcohol Use: No Hx Substance Use: No Hx Substance Use Treatment: No Allergies/Home Meds Allergies/Adverse Reactions: Allergies No Known Allergies Allergy (Verified 10/19/18 10:28) Home Medications: Home Meds Medication Instructions Recorded Confirmed Aspirin [Aspirin Chewable] 81 mg PO DAILY 01/02/15 07/17/18 Cholecalciferol (Vitamin D3) 1,000 iu PO DAILY 01/02/15 07/17/18 [Vitamin D3] Donepezil HCl 21 mg PO DAILY 01/02/15 07/17/18 Memantine HCl [Namenda] 28 mg PO DAILY 06/01/15 07/17/18 l-Mefol/A-Cyst/Meb12/Algal Oil 1 tab PO DAILY 03/10/16 07/17/18 [Cerefolin Nac Caplet] C,E,Zinc,Copper 24/Om3/Lut/Anthony 1 tab PO BID 05/19/16 07/17/18 [Ocuvite Adult 50 Plus Softgel] Docusate [Colace] 100 mg PO DAILY 05/19/16 07/17/18 levETIRAcetam [Keppra] 250 mg PO BID 05/19/16 07/17/18 Review of Systems - Physician Review All systems were reviewed & negative as marked: Yes - Review of Systems Constitutional: Fatigue. absent: Fevers, Other (chills) Respiratory: absent: SOB, Cough, Wheezing Cardiovascular: absent: Chest Pain Gastrointestinal: absent: Abdominal Pain, Diarrhea, Nausea, Vomiting Genitourinary Male: absent: Dysuria, Frequency, Hematuria Musculoskeletal: absent: Back Pain, Neck Pain Neurological: Focal Weakness, Other ((+)generalized weakness, new left upper extremity weakness). absent: Headache, Dizziness Physical Exam Vital Signs Reviewed: Yes Temperature: Afebrile Blood Pressure: Normal Pulse: Regular Respiratory Rate: Normal Appearance: Positive for: Well-Appearing, Non-Toxic, Comfortable Pain Distress: None Mental Status: Positive for: Lethargic (but arousable ), other (Oriented x2 only) - Systems Exam Head: Present: Atraumatic, Normocephalic Pupils: Present: PERRL Extroacular Muscles: Present: EOMI Conjunctiva: Present: Normal Mouth: Present: Moist Mucous Membranes Pharnyx: No: ERYTHEMA, EXUDATE, TONSILS ENLARGED Neck: Present: Normal Range of Motion Respiratory/Chest: Present: Decreased Breath Sounds, Other (Diminished breath sounds). No: Respiratory Distress, Accessory Muscle Use, Rales, Rhonchi Cardiovascular: Present: Regular Rate and Rhythm, Normal S1, S2. No: Murmurs Abdomen: No: Tenderness, Distention, Peritoneal Signs, Rebound, Guarding Back: Present: Normal Inspection Upper Extremity: Present: Normal Inspection, Other (able to move left upper extremity against gravity ). No: Cyanosis, Edema Lower Extremity: Present: Normal Inspection. No: Edema Neurological: Present: GCS=15, CN II-XII Intact, Speech Normal. No: Motor Func Grossly Intact (Left upper extremity weakness, able to move against gravity) Skin: Present: Warm, Dry, Normal Color. No: Rashes Psychiatric: Present: Alert, Lethargic (but arousable) Medical Decision Making ED Course and Treatment: 10/19/18 10:54 Impression: 83 year old male presents for evaluation of generalized weakness and fatigue for the past 2-3 days associated with new left upper extremity wellness that began 1 week ago. Plan: -- VBG -- CT Head w/o contrast -- Labs -- EKG -- Chest X-ray -- Blood Urine, Urine Culture -- Urinary Straight Cath -- Urinalysis -- Reassess and disposition Prior Visits: Notes and results from previous visits were reviewed. Progress Notes: 10/19/18 11:16 EKG shows normal sinus rhythm rate approximately [address] or T wave changes. PROCEDURE: CT HEAD WITHOUT CONTRAST. Dictator : Holley Mancia MD Report Date : 10/19/2018 11:42:06 IMPRESSION: 1. Interval development of late subacute/chronic right MCA territory infarction involving the right posterior parietal lobe, new since the prior examination. 2. Moderate chronic microangiopathic changes and moderate age-related global parenchymal volume loss. Chronic lacunar infarctions in the basal ganglia, left anterior limb of internal capsule and bilateral cerebellar hemispheres. 10/19/18 13:[address] Francis, who will admit to telemetry for CVA. - Lab Interpretations I have reviewed the lab results: Yes - RAD Interpretation Radiology Orders: X-ray chest one view as read by the radiologist shows a pacemaker with no infiltrate effusion or cardiomegaly. Automatic Steel Tie Adjuster: Radiologist - EKG Interpretation Interpreted by ED Physician: Yes Type: 12 lead EKG - Scribe Statement The provider has reviewed the documentation as recorded by the Jer Valentino Provider Scribe Attestation: All medical record entries made by the Sultanaibniemsh were at my direction and personally dictated by me. I have reviewed the chart and agree that the record accurately reflects my personal performance of the history, physical exam, medical decision making, and the department course for this patient. I have also personally directed, reviewed, and agree with the discharge instructions and disposition. Disposition/Present on Arrival - Present on Arrival Any Indicators Present on Arrival: No History of DVT/PE: No History of Uncontrolled Diabetes: No Urinary Catheter: No History of Decub. Ulcer: No History Surgical Site Infection Following: None - Disposition Have Diagnosis and Disposition been Completed?: Yes Diagnosis: Unsteady gait, Cerebrovascular accident, Weakness Disposition: HOSPITALIZED Disposition Time: 13:42 Patient Plan: Observation, Telemetry Patient Problems: Current Active Problems Problem Status Onset Cerebrovascular accident Acute Weakness Acute Unsteady gait Chronic Condition: FAIR
[2018-10-19 11:17] LABS: BASO # 0.02 K/mm3 (0.0-2.0); BASO % 0.2 % (0.0-3.0); EOS % 0.3 % (1.5-5.0); HEMOGLOBIN 13.7 g/dL (14.0-18.0); LYMPH # 1.5 (1.2-3.4); LYMPH % 11.4 % (22.0-35.0); MEAN CELL VOLUME 90.9 fl (80.0-105.0); MEAN CORPUSCULAR HEMOGLOBIN 29.7 pg (25.0-35.0); MEAN CORPUSCULAR HGB CONC 32.7 g/dl (31.0-37.0); MEAN PLATELET VOLUME 8.4 fl (7.0-11.0); MONO # 1.1 (0.1-0.6); MONO % 8.4 % (1.0-6.0); RBC 4.61 10^6/uL (3.5-6.1); RED CELL DISTRIBUTION WIDTH 13.6 % (11.5-14.5); WHITE BLOOD COUNT 12.7 10^3/uL (4.5-11.0)
[2018-10-19 11:22] LABS: INR 1.28; PARTIAL THROMBOPLASTIN TIME 25.4 Seconds (26.9-38.3); PROTHROMBIN TIME 14.5 SECONDS (9.4-12.5)
--- NOTE | 2018-10-19 11:27 | RAD ---
Date of service: 10/19/2018 HISTORY: Weakness COMPARISON: 07/14/2018 FINDINGS: LUNGS: The lungs are well inflated and clear. PLEURA: No pleural effusions or pneumothorax. CARDIOVASCULAR: The heart is normal in size. Stable position of left-sided dual lead permanent pacing device. No aortic atherosclerotic calcifications present. OSSEOUS STRUCTURES: Within normal limits for the patient's age. VISUALIZED UPPER ABDOMEN: Normal. OTHER FINDINGS: None. IMPRESSION: No acute findings.
[2018-10-19 11:38] LABS: VENOUS BLOOD GAS BASE EXCESS -0.4 mmol/L (0.0-2.0); VENOUS BLOOD GAS PO2 149 mm/Hg (30-55); VENOUS BLOOD PH 7.36 (7.32-7.43)
--- NOTE | 2018-10-19 11:45 | CT ---
Date of service: 10/19/2018 PROCEDURE: CT HEAD WITHOUT CONTRAST. HISTORY: Weakness COMPARISON: None available. TECHNIQUE: Axial computed tomography images were obtained through the head/brain without intravenous contrast. Radiation dose: Total exam DLP = 854.64 mGy-cm. This CT exam was performed using one or more of the following dose reduction techniques: Automated exposure control, adjustment of the mA and/or kV according to patient size, and/or use of iterative reconstruction technique. FINDINGS: HEMORRHAGE: No intracranial hemorrhage. BRAIN: There is in symmetric wedge-shaped low-attenuation area in the right posterior parietal lobe. There are moderate chronic microangiopathic changes. There are chronic lacunar infarctions in the left anterior limb of internal capsule and basal ganglia and bilateral cerebellar hemispheres. There is a small chronic lacunar infarction in the right basal ganglia. There are coarse atherosclerotic calcifications in the cavernous carotid arteries. VENTRICLES: There is moderate age-related global parenchymal volume loss and proportionate enlargement of the ventricles and cortical sulci. CALVARIUM: There is no calvarial fracture or extracranial soft tissue swelling. PARANASAL SINUSES: Predominantly clear. MASTOID AIR CELLS: Predominantly clear. OTHER FINDINGS: None. IMPRESSION: 1. Interval development of late subacute/chronic right MCA territory infarction involving the right posterior parietal lobe, new since the prior examination. 2. Moderate chronic microangiopathic changes and moderate age-related global parenchymal volume loss. Chronic lacunar infarctions in the basal ganglia, left anterior limb of internal capsule and bilateral cerebellar hemispheres.
[2018-10-19 13:11] LABS: ALBUMIN 3.8 g/dL (3.0-4.8); AST/SGOT 20 U/L (17-59); BLOOD UREA NITROGEN 26 mg/dL (7-21); CALCIUM 9.5 mg/dL (8.4-10.5); GFR NON-AFRICAN AMERICAN > 60
[2018-10-19 13:12] LABS: ALT/SGPT < 6 U/L (7-56)
[2018-10-19 13:16] LABS: URINE BILIRUBIN SMALL (NEGATIVE); URINE BLOOD LARGE (NEGATIVE); URINE GLUCOSE (UA) NEGATIVE (NEGATIVE); URINE LEUKOCYTE ESTERASE NEGATIVE Leu/uL (NEGATIVE); URINE PROTEIN 30 mg/dL (<30 mg/dL)
[2018-10-19 13:19] LABS: URINE APPEARANCE CLEAR (CLEAR); URINE COLOR YELLOW (YELLOW)
[2018-10-19 13:20] LABS: TROPONIN I < 0.01 ng/mL
[2018-10-19 13:41] LABS: URINE BACTERIA SMALL /hpf; URINE EPITHELIAL CELLS 0 - 2 /hpf (0-5); URINE RBC TNTC /hpf (0-2); URINE WBC 0 - 2 /hpf (0-6)
[2018-10-19 20:46] VITALS: BMI 23.3
[2018-10-19] MEDS ORDERED: Pneumococcal 23-Valent Vaccine IM ONE (20:46)
[2018-10-19] MEDS ORDERED: levETIRAcetam Solution 100 MG/ML BOTTLE PO SCH (22:00)
[2018-10-19] MEDS: Latanoprost 2.5 ml Opht Soln OU SCH (22:25)
--- NOTE | 2018-10-20 05:35 | CARD ---
APPROVED REPORT Date of service: 10/19/2018 EKG Measurement Heart [id number] <Conclusion> Normal sinus rhythm Low voltage QRS Borderline ECG
[2018-10-20 07:54] LABS: MEAN CELL VOLUME 90.3 fl (80.0-105.0); MEAN CORPUSCULAR HEMOGLOBIN 29.3 pg (25.0-35.0); MEAN CORPUSCULAR HGB CONC 32.4 g/dl (31.0-37.0); MEAN PLATELET VOLUME 8.1 fl (7.0-11.0); RBC 4.44 10^6/uL (3.5-6.1); RED CELL DISTRIBUTION WIDTH 13.3 % (11.5-14.5); WHITE BLOOD COUNT 10.9 10^3/uL (4.5-11.0)
[2018-10-20 08:06] LABS: ALBUMIN 3.5 g/dL (3.0-4.8); AST/SGOT 23 U/L (17-59); BLOOD UREA NITROGEN 24 mg/dL (7-21); CALCIUM 9.2 mg/dL (8.4-10.5); GFR NON-AFRICAN AMERICAN > 60; HDL CHOLESTEROL 33 mg/dL (29-60)
[2018-10-20 08:09] LABS: ALT/SGPT < 6 U/L (7-56)
[2018-10-20 08:17] LABS: LDL CHOLESTEROL 115 mg/dL (0-129)
[2018-10-20] MEDS: Cholecalciferol 1,000 INTLU TAB PO SCH (10:50)
[2018-10-20] MEDS: Enoxaparin 40 mg Syringe SC SCH (11:06)
--- NOTE | 2018-10-20 20:05 | HP ---
DATE OF EXAM: 10/20/2018 CHIEF COMPLAINT AND HISTORY OF PRESENT ILLNESS: This is an 83-year-old male, who is coming into the hospital with the weakness of his left arm. He has been having falls for the past three days. The patient is unable to get out of bed. The weakness for the left arm started about one week ago. He is not able to give history because of his underlying medical condition. He says he is not sure what happened, but does note that he has a difficult time in walking. He denies any chest pain or shortness of breath. No abdominal pain or back pain. No dysuria or frequency. No dysarthria. No dysphagia. No diplopia. REVIEW OF SYMPTOMS: All other review of symptoms are within normal limits except what was mentioned. He says that he is not able to get up, but he was able to walk before. The patient was in the hospital about three months ago because of difficulty in ambulating. PAST MEDICAL HISTORY: Hearing impairment; pacemaker; depression; colon cancer, status post resection; seizure disorder; TIA, and fall. PAST SURGICAL HISTORY: Colon resection and pacemaker. ALLERGIES: NO KNOWN DRUG ALLERGIES. SOCIAL HISTORY: Does not smoke or drink. FAMILY HISTORY: Noncontributory. MEDICATIONS: Has been reviewed on the AUG. PHYSICAL EXAMINATION: VITAL SIGNS: Temperature is 98.1, pulse is 75, blood pressure 137/77, respirations 20, and O2 saturation 92%. Height is 5 feet 5 inches, weight is 150 pounds, and BMI is 25.1. GENERAL: The patient is lying in bed, comfortable, and in no acute distress. HEENT: Atraumatic and normocephalic. Anicteric sclerae. Moist mucosa. [place] conjunctivae. No oral lesions. NECK: No JVD, anterior and posterior adenopathy, thyromegaly, or bruits. CARDIOVASCULAR: S1 and S2 regular. No murmurs, rubs or gallops. LUNGS: Clear to auscultation bilaterally. No wheezes, rales, or rhonchi. ABDOMEN: Bowel sounds are positive. Soft, nontender and nondistended. No hepatosplenomegaly. No rebound and no guarding. EXTREMITIES: No cyanosis, clubbing, or edema. NEUROLOGIC: No facial asymmetry. Tongue is midline. No uvula deviation. Cranial nerves II through XII are intact. On the left arm, he has proximal 4/5 power and distal 4/5 power. In the left leg, he has proximal 4/5 power and distal 4/5 power. Sensation intact in upper extremities and lower extremities. PSYCHIATRIC: She is awake, alert and oriented x3. No anxiety or depression. She has normal affect. GENITOURINARY: No CVA tenderness. VASCULAR: 2+ pulses in the carotid pulses and pedal pulses. SKIN: No erythema or nodules SPINE: Shows normal curvature. LABORATORY DATA: White count of 12.7, hemoglobin is 13.7, platelet count is 200. Repeat white count is 10.9. INR is 1.28. The patient has a chemistry shows a sodium 141, potassium is 4.4, creatinine is 1.1, troponin is 0.01, and LDL is 115. Urine shows blood large, nitrites are negative. Bilirubin is small. His EKG shows sinus rhythm with a rate of 80, QTC is 435, and low voltage of QRS. The patient has chest x-ray done shows no acute findings. CT of the head done shows a development of a right MCA territory infarct involving the right posterior and parietal lobe. prior examination is moderate chronic microangiopathic changes. ASSESSMENT: 1. 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 2. Gait instability. 3. Chronic kidney disease, stage III. 4. Dementia, Alzheimer's type. 5. Seizure disorder. 6. Pacemaker. PLAN: The patient is going to be admitted to the hospital for stroke. The patient has been having difficulty in ambulating. He has weakness in the left arm and left leg. He has a CAT scan that shows signs of stroke. This is not a new stroke, but most likely has been present for about a week. I will get a Neurology consultation with Dr. Ch. The patient is going to continue with his Aricept for his Alzheimer's dementia. He is going to be on aspirin for his stroke. The patient is on Keppra for his seizure disorder. The patient is on Zoloft for his depression. He is going to be on Namenda for his Alzheimer's dementia. I will change his Keppra to 250 twice a day. He will most likely need physical therapy. He will need a subacute rehab. I will get director of social media marketing and case reviewer to see the patient tomorrow. The patient is on a heart-healthy diet and does not have any swallowing difficulty. I will call the family to update the family. I will put the patient on Lovenox for DVT prophylaxis because he is at risk of having DVT. Kenji Francis MD
[2018-10-20] MEDS: Latanoprost 2.5 ml Opht Soln OU SCH (21:56)
[2018-10-21] MEDS: CEREFOLIN PO SCH (09:56)
[2018-10-21] MEDS: Cholecalciferol 1,000 INTLU TAB PO SCH (09:59)
[2018-10-21] MEDS: Enoxaparin 40 mg Syringe SC SCH (09:59)
--- NOTE | 2018-10-21 10:05 | CP.PCM.PCO ---
Physician Communication Note - Physician Communication Note Physician Communication Note: spoke to neuro Dr man, added plavix to regimen Additional Comments - Additional Comments Additional Comments: discuss with pmd plan: acute vs [facility], ordered o.t , will follow plavix added to regimen per neuro recs, will follow
--- NOTE | 2018-10-21 12:54 | CP.PCM.PN ---
<Alexander Whalen - Last Filed: 10/21/18 14:58> Subjective - Date & Time of Evaluation Date of Evaluation: 10/21/18 Time of Evaluation: 08:15 - Subjective Subjective: Alexander Whalen D.O. PGY-3, Internal Medicine Resident, Dr. Francis's Service, Progress Note 83-year-old male with a past medical history of depression, colon cancer status post resection, seizures, previous TIAs, falls, hearing impairment, pacemaker who presented for complaints of left arm weakness as well as recurrent falls and inability to get up all going on for approximately 1 week. Patient was seen and examined at bedside. States feeling comfortable at this time. At times has some discomfort in the left arm. Still with mild residual weakness. Objective - Vital Signs/Intake and Output Vital Signs (last 24 hours): Temp Pulse Resp BP Pulse Ox 98.9 F 68 19 104/59 L 98 10/21/18 06:00 10/21/18 10:00 10/21/18 06:00 10/21/18 06:00 10/21/18 06:00 Intake and Output: 10/21/18 10/21/18 06:59 18:59 Intake Total 1200 Output Total 0 Balance 1200 - Medications Medications: Current Medications Aspirin (Ecotrin) 81 mg PO DAILY [facility] Last Admin: 10/21/18 09:59 Dose: 81 mg Atorvastatin Calcium (Lipitor) 40 mg PO DIN [facility] Last Admin: 10/20/18 17:35 Dose: 40 mg Cholecalciferol (Vitamin D) 1,000 intlu PO DAILY [facility] Last Admin: 10/21/18 09:59 Dose: 1,000 intlu Clopidogrel Bisulfate (Plavix) 75 mg PO DAILY [facility] Last Admin: 10/21/18 10:11 Dose: 75 mg Donepezil HCl (Aricept) 10 mg PO HS [facility] Last Admin: 10/20/18 21:55 Dose: 10 mg Enoxaparin Sodium (Lovenox) 40 mg SC DAILY [facility]; Protocol Last Admin: 10/21/18 09:59 Dose: 40 mg Home Med (Home Med) 1 unit PO DAILY [facility] Last Admin: 10/21/18 09:56 Dose: Not Given Latanoprost (Xalatan Opht) 0 ml OU HS [facility] Last Admin: 10/20/18 21:56 Dose: 2.5 ml Levetiracetam (Keppra) 250 mg PO BID [facility] Last Admin: 10/21/18 09:59 Dose: 250 mg Memantine (Namenda) 10 mg PO DAILY [facility] Last Admin: 10/21/18 10:00 Dose: 10 mg Sertraline HCl (Zoloft) 50 mg PO HS [facility] Last Admin: 10/20/18 21:55 Dose: 50 mg - Labs Labs: 10/20/18 07:00 10/20/18 07:00 PT 14.5 SECONDS (9.4-12.5) H 10/19/18 11:00 INR 1.28 10/19/18 11:00 APTT 25.4 Seconds (26.9-38.3) L 10/19/18 11:00 - Constitutional Appears: Non-toxic, No Acute Distress - Head Exam Head Exam: ATRAUMATIC, NORMOCEPHALIC - Eye Exam Eye Exam: EOMI. absent: Scleral icterus - ENT Exam ENT Exam: Mucous Membranes Moist - Respiratory Exam Respiratory Exam: absent: Rales, Rhonchi, Wheezes - Cardiovascular Exam Cardiovascular Exam: +S1, +S2. absent: Gallop, Rubs - GI/Abdominal Exam GI & Abdominal Exam: Soft, Normal Bowel Sounds. absent: Distended, Tenderness - Neurological Exam Neurological Exam: Alert, Awake Additional comments: oriented to self and place, not time, residual CHANCE weakness with L purchasing analyst 4/5, BI 4+/5, TRI 4-/5, DELT 4/5, mild left facial droop noted - Skin Skin Exam: Dry, Warm Assessment and Plan - Assessment and Plan (Free Text) Assessment: 83-year-old male with a past medical history of depression, colon cancer status post resection, seizures, previous TIAs, falls, hearing impairment, pacemaker who presented for complaints of left arm weakness as well as recurrent falls and inability to get up all going on for approximately 1 week. Plan: 1. Right middle cerebral artery stroke with left-sided deficits 2. Alzheimer's dementia 3. Seizure disorder 4. Pacemaker 5. Colon CA status post resection 6. Hematuria Head CT images and read reviewed, showing interval development of late subacu te/chronic right MCA territory infarction involving the right posterior parietal lobe as well as microangiopathic changes with parenchymal volume loss. Neurology consulted, pending recommendations. Currently on aspirin. Plavix started per neuro recommendation. Continue with atorvastatin, vitamin D. We will also continue with Aricept, namenda, keppra, and zoloft. Current recommendation by physical therapy for patient to go to acute rehab. Discussed with case management who will look into this matter. Also discussed with his Brooke at [phone]. All of her questions were welcomed and answered to her verbal satisfaction. States that she will be coming in physically later today to speak with manager case and manager social. Review of chart reveals that patient has been having some hematuria as is noted on this admissions urinalysis. Recommendation for outpatient urological evaluation. Patient was seen and examined and case was discussed at length with attending physician. <Kenji Francis S - Last Filed: 10/21/18 15:46> Objective - Vital Signs/Intake and Output Vital Signs (last 24 hours): Temp Pulse Resp BP Pulse Ox 98.9 F 68 19 104/59 L 98 10/21/18 06:00 10/21/18 10:00 10/21/18 06:00 10/21/18 06:00 10/21/18 06:00 Intake and Output: 10/21/18 10/21/18 06:59 18:59 Intake Total 1200 Output Total 0 Balance 1200 - Medications Medications: Current Medications Aspirin (Ecotrin) 81 mg PO DAILY [facility] Last Admin: 10/21/18 09:59 Dose: 81 mg Atorvastatin Calcium (Lipitor) 40 mg PO DIN [facility] Last Admin: 10/20/18 17:35 Dose: 40 mg Cholecalciferol (Vitamin D) 1,000 intlu PO DAILY [facility] Last Admin: 10/21/18 09:59 Dose: 1,000 intlu Clopidogrel Bisulfate (Plavix) 75 mg PO DAILY [facility] Last Admin: 10/21/18 10:11 Dose: 75 mg Donepezil HCl (Aricept) 10 mg PO HS [facility] Last Admin: 10/20/18 21:55 Dose: 10 mg Enoxaparin Sodium (Lovenox) 40 mg SC DAILY [facility]; Protocol Last Admin: 10/21/18 09:59 Dose: 40 mg Home Med (Home Med) 1 unit PO DAILY [facility] Last Admin: 10/21/18 09:56 Dose: Not Given Latanoprost (Xalatan Opht) 0 ml OU HS [facility] Last Admin: 10/20/18 21:56 Dose: 2.5 ml Levetiracetam (Keppra) 250 mg PO BID [facility] Last Admin: 10/21/18 09:59 Dose: 250 mg Memantine (Namenda) 10 mg PO DAILY [facility] Last Admin: 10/21/18 10:00 Dose: 10 mg Sertraline HCl (Zoloft) 50 mg PO HS [facility] Last Admin: 10/20/18 21:55 Dose: 50 mg - Labs Labs: 10/20/18 07:00 10/20/18 07:00 PT 14.5 SECONDS (9.4-12.5) H 10/19/18 11:00 INR 1.28 10/19/18 11:00 APTT 25.4 Seconds (26.9-38.3) L 10/19/18 11:00 Assessment and Plan - Assessment and Plan (Free Text) Plan: Pt seen and examined by me. I have reviewed the note of the medical operations supervisor and I agree with it. I have discussed the assessment and plan with the resident. I have reviewed the medications and the last labs.
--- NOTE | 2018-10-21 15:36 | CON ---
DATE: 10/21/2018 NEUROLOGY CONSULT CHIEF COMPLAINT: Weakness of the left side, especially left arm. HISTORY OF PRESENT ILLNESS: This is a 83-year-old man with past medical history of hearing impairment, coronary artery disease, pacemaker, colon cancer, status post colon resection, seizure disorder on Keppra 250 mg p.o. twice a day degenerative causes, TIA, who came to the hospital for weakness of his left arm and has been having falls for the past 3 days. He underwent a CAT scan of the head, which showed a subacute right MCA territory infarct. He is currently on aspirin and I would have added Plavix 75 mg in addition to Lipitor for stroke prevention. He will need a acute rehab and rehabilitation for his left sided weakness. Otherwise, his communicating without any difficulty. REVIEW OF SYSTEMS: A 14-point review of systems is negative except as per the HPI. PAST MEDICAL HISTORY: As above. PAST SURGICAL HISTORY: Colon resection and pacemaker. SOCIAL HISTORY: No illicit drug use, smoking, or EtOH abuse. MEDICATIONS: Reviewed by nurses' reconciliation sheet. LABORATORY DATA: Sodium is 138, potassium 3.8, chloride 103, carbon dioxide 26, BUN of 24, creatinine 1.9, and random glucose 94. PHYSICAL EXAMINATION GENERAL: The patient is sitting up in bed, in no acute distress. VITAL SIGNS: Temperature 98.9, pulse rate of 74, blood pressure 104/59, respiratory rate 19, and oxygen saturation 90% on room air. HEENT: Atraumatic and normocephalic. PERRLA. Extraocular muscles intact. NECK: Supple. No JVD. No adenopathy noted. LUNGS: Clear to auscultation. No adventitious sounds. HEART: S1 and S2. Normal rate and rhythm. No murmurs, rubs, or gallops. ABDOMEN: Soft, nontender, and nondistended. Bowel sounds present. EXTREMITIES: No clubbing. No cyanosis. Peripheral pulses 2+ felt bilaterally. NEUROLOGIC: The patient is alert and oriented to person and place not much for month and year. Recall after 5 minutes 0/3. Poor attention span. Slow thought process. Cranial nerves II through XII are intact. Motor exam; has left sided weakness, especially in the left upper extremity 4/5 and left lower extremity of 4++/5. Toes are upgoing bilaterally. Sensory exam; light touch and pinprick, proprioception, and vibration are intact. DTRs are 2+ and one at both knees and ankles. Coordination; [id number] is intact, except difficulty with left upper extremity due to left arm weakness from CVA. IMPRESSION: This is a 83-year-old man with history of pacemaker, hearing impairment, depression colon cancer, status post resection, seizure disorder, on low dose Keppra 250 mg p.o. b.i.d., transient ischemic attack and multiple falls, who presented with left sided weakness, found to have an acute right middle cerebral artery and cerebrovascular accident secondary to diffuse atherosclerotic disease with underlying super imposed dementia marked severe type. He has underlying seizure, but no recent history of any seizures. RECOMMENDATIONS: At this time we recommend; 1. Aspirin 81 mg, Plavix 75 mg, and Lipitor 40 mg for stroke prevention. 2. Acute rehab for physical and occupational therapy for rehabilitating his weakness. 3. Keep systolic blood pressure at 120s to 130s and diastolic at 70s and 80s. 4. Monitor left currently. 5. Continue with Aricept 10 mg p.o. daily, Namenda 10 mg p.o. daily for dementia. 6. DVT and GI prophylaxis and continue Keppra 250 mg p.o. b.i.d. for seizure prophylaxis. Thank you for this consult. Trey Ch MD
--- NOTE | 2018-10-21 21:36 | PN ---
DATE: 10/21/2018 The patient was seen and examined. I did agree with the note of the medical office administrator. I was involved with the plan of care. The patient is currently comfortable. He had right MCA stroke with left-sided weakness prior to coming to the hospital. The resident spoke with the patient's to give her an update on the patient's diagnosis and plan of care. I did speak to his social insurance administrator regarding discharge planning. The patient has Alzheimer's dementia, is currently not comfortable and does not have delirium. He is at risk of delirium while he is in the hospital. He had a history of seizure disorder and is currently on Keppra. He is on aspirin and Plavix was added for his stroke by Dr. Ch. The patient is waiting for rehab. He is currently DNR/DNI. He is on Lovenox for DVT prophylaxis. He is on Latanoprost for glaucoma. Kenji Francis MD
[2018-10-21] MEDS: Latanoprost 2.5 ml Opht Soln OU SCH (22:02)
[2018-10-22 08:59] VITALS: BP 116/70; PULSE 69; RESP 20; TEMP 98; O2SAT 95
[2018-10-22] MEDS: Enoxaparin 40 mg Syringe SC SCH (09:30)
[2018-10-22] MEDS: Cholecalciferol 1,000 INTLU TAB PO SCH (09:30)
[2018-10-22] MEDS: CEREFOLIN PO SCH (09:31)
--- NOTE | 2018-10-22 12:40 | CP.PCM.PCO ---
Additional Comments - Additional Comments Additional Comments: S/p acute Right MCA with left sided arm flaccidity. Denied sob, denied dysphagia, slow to respond. Family at bedside. OT eval pending, awaits acceptance to acute rehab[facility]. Will continue to monitor clinical status and follow closely.
--- NOTE | 2018-10-22 17:20 | CP.PCM.DIS ---
<Alexander Whalen - Last Filed: 10/22/18 17:14> Provider - Provider Date of Admission: 10/19/18 19:03 Attending physician: Kenji Francis MD Consults: 10/19/18 19:04 Consult [Physician Consult] Routine Comment: Consulting Provider: Ian Ch Consulting Physician: Ian Ch Reason for Consult: CVA 10/19/18 19:26 Physician Consult Routine Comment: Consulting Provider: Trey Ch Consulting Physician: Trey Ch Reason for Consult: CVA 10/19/18 20:46 Case Management Referral Routine Comment: NEEDS ASSISTANCE AT HOME Physician Instructions: Reason For Exam: EVALUATION Reason for Referral: Sand Bobber Eval Nursing Referral for Wound Care Routine Comment: AT RISK FOR SKIN BREAKDOWN. Physician Instructions: Reason For Exam: EVALUATION 10/19/18 20:57 Nursing Referral for Palliative Care Routine Comment: Physician Instructions: Reason For Exam: EVALUATION Social Work Referral Routine Comment: NEEDS ASSISTANCE AT HOME Physician Instructions: Reason For Exam: EVALUATION Time Spent in preparation of Discharge (in minutes): 50 Diagnosis - Discharge Diagnosis (1) Cerebrovascular accident Status: Acute Hospital Course - Lab Results Lab Results: Micro Results 10/19/18 11:38 Blood-Venous Blood Culture - Preliminary NO GROWTH AFTER 3 DAYS 10/19/18 11:00 Blood-Venous Blood Culture - Preliminary NO GROWTH AFTER 3 DAYS 10/19/18 12:40 Urine,Catheterized Urine Culture - Final No Growth (<1,000 CFU/ML) Most Recent Lab Values WBC 10.9 10^3/uL (4.5-11.0) 10/20/18 07:00 RBC 4.44 10^6/uL (3.5-6.1) 10/20/18 07:00 Hgb 13.0 g/dL (14.0-18.0) L 10/20/18 07:00 Hct 40.1 % (42.0-52.0) L 10/20/18 07:00 MCV 90.3 fl (80.0-105.0) 10/20/18 07:00 MCH 29.3 pg (25.0-35.0) 10/20/18 07:00 MCHC 32.4 g/dl (31.0-37.0) 10/20/18 07:00 RDW 13.3 % (11.5-14.5) 10/20/18 07:00 Plt Count 196 10^3/uL (120.0-450.0) 10/20/18 07:00 MPV 8.1 fl (7.0-11.0) 10/20/18 07:00 Neut % (Auto) 79.7 % (50.0-68.0) H 10/19/18 11:00 Lymph % (Auto) 11.4 % (22.0-35.0) L 10/19/18 11:00 Hickman % (Auto) 8.4 % (1.0-6.0) H 10/19/18 11:00 Eos % (Auto) 0.3 % (1.5-5.0) L 10/19/18 11:00 Baso % (Auto) 0.2 % (0.0-3.0) 10/19/18 11:00 Lymph # (Auto) 1.5 (1.2-3.4) 10/19/18 11:00 Hickman # (Auto) 1.1 (0.1-0.6) H 10/19/18 11:00 Eos # (Auto) 0.0 (0.0-0.7) 10/19/18 11:00 Baso # (Auto) 0.02 K/mm3 (0.0-2.0) 10/19/18 11:00 Absolute Neuts (auto) 10.14 (1.4-6.5) H 10/19/18 11:00 PT 14.5 SECONDS (9.4-12.5) H 10/19/18 11:00 INR 1.28 10/19/18 11:00 APTT 25.4 Seconds (26.9-38.3) L 10/19/18 11:00 pO2 149 mm/Hg (30-55) H 10/19/18 11:20 VBG pH 7.36 (7.32-7.43) 10/19/18 11:20 VBG pCO2 45.0 (40-60) 10/19/18 11:20 VBG HCO3 25.4 mmol/l (21-28) 10/19/18 11:20 VBG Total CO2 26.8 mmol.L (22-28) 10/19/18 11:20 VBG O2 Sat (Calc) 100.0 % (40-65) H 10/19/18 11:20 VBG Base Excess -0.4 mmol/L (0.0-2.0) L 10/19/18 11:20 VBG Potassium 5.9 mmol/L (3.6-5.2) H 10/19/18 11:20 Sodium 138.0 mmol/L (132-148) 10/19/18 11:20 Chloride 98.0 mmol/L (98-107) 10/19/18 11:20 Glucose 101 mg/dl (75-110) 10/19/18 11:20 Lactate 1.8 mmol/L (0.7-2.1) 10/19/18 11:20 FiO2 21.0 % 10/19/18 11:20 Sodium 138 mmol/L (132-148) 10/20/18 07:00 Potassium 3.8 mmol/L (3.6-5.0) 10/20/18 07:00 Chloride 103 mmol/L (98-107) 10/20/18 07:00 Carbon Dioxide 26 mmol/L (21-33) 10/20/18 07:00 Anion Gap 13 (10-20) 10/20/18 07:00 BUN 24 mg/dL (7-21) H 10/20/18 07:00 Creatinine 1.0 mg/dl (0.8-1.5) 10/20/18 07:00 Est GFR ( Amer) > 60 10/20/18 07:00 Est GFR (Non-Af Amer) > 60 10/20/18 07:00 Random Glucose 94 mg/dL (70-110) 10/20/18 07:00 Calcium 9.2 mg/dL (8.4-10.5) 10/20/18 07:00 Phosphorus 4.0 mg/dL (2.5-4.5) 10/19/18 12:41 Magnesium 2.2 mg/dL (1.7-2.2) 10/19/18 12:41 Total Bilirubin 0.7 mg/dL (0.2-1.3) 10/20/18 07:00 AST 23 U/L (17-59) 10/20/18 07:00 ALT < 6 U/L (7-56) L 10/20/18 07:00 Alkaline Phosphatase 84 U/L (38-126) 10/20/18 07:00 Lactate Dehydrogenase 379 U/L (333-699) 10/19/18 12:41 Total Creatine Kinase < 20 U/L (35-230) L 10/19/18 12:41 Troponin I < 0.01 ng/mL 10/19/18 12:41 Total Protein 7.1 g/dL (5.8-8.3) 10/20/18 07:00 Albumin 3.5 g/dL (3.0-4.8) 10/20/18 07:00 Globulin 3.6 gm/dL 10/20/18 07:00 Albumin/Globulin Ratio 1.0 (1.1-1.8) L 10/20/18 07:00 Triglycerides 112 mg/dL (35-160) 10/20/18 07:00 Cholesterol 189 mg/dL (130-200) 10/20/18 07:00 LDL Cholesterol Direct 115 mg/dL (0-129) 10/20/18 07:00 HDL Cholesterol 33 mg/dL (29-60) 10/20/18 07:00 Venous Blood Potassium 5.9 mmol/L (3.6-5.2) H 10/19/18 11:20 Urine Color Yellow (YELLOW) 10/19/18 12:40 Urine Appearance Clear (CLEAR) 10/19/18 12:40 Urine pH 6.0 (4.7-8.0) 10/19/18 12:40 Ur Specific [place] >= 1.030 (1.005-1.035) 10/19/18 12:40 Urine Protein 30 mg/dL (<30 mg/dL) H 10/19/18 12:40 Urine Glucose (UA) Negative mg/dL (NEGATIVE) 10/19/18 12:40 Urine Ketones 15 mg/dL (NEGATIVE) H 10/19/18 12:40 Urine Blood Large (NEGATIVE) H 10/19/18 12:40 Urine Nitrate Negative (NEGATIVE) 10/19/18 12:40 Urine Bilirubin Small (NEGATIVE) H 10/19/18 12:40 Urine Urobilinogen 1.0 E.U./dL (<1 E.U./dL) H 10/19/18 12:40 Ur Leukocyte Esterase Negative [place]/uL (NEGATIVE) 10/19/18 12:40 Urine RBC Tntc /hpf (0-2) H 10/19/18 12:40 Urine WBC 0 - 2 /hpf (0-6) 10/19/18 12:40 Ur Epithelial Cells 0 - 2 /hpf (0-5) 10/19/18 12:40 Urine Bacteria Small /hpf (NONE) 10/19/18 12:40 - Hospital Course Hospital Course: Alexander Whalen D.O. PGY-3, Internal Medicine Resident, Dr. Francis's Service, Discharge Summary 83-year-old male with a past medical history of depression, colon cancer status post resection, seizures, previous TIAs, falls, hearing impairment, pacemaker who presented for complaints of left arm weakness as well as recurrent falls and inability to get up all going on for approximately 1 week. Patient had a CAT scan of the head which showed interval development of a late subacute/chronic right MCA territory infarct involving the right posterior parietal lobe, new since the prior examination. Moderate chronic angiopathic changes of moderate age-related global parenchymal volume loss. Chronic lacunar infarcts in the basal ganglia, left anterior limb of the internal capsule bilateral cerebral hemispheres. Patient was admitted for further evaluation. Patient also had a chest x-ray which showed no acute findings. Patient was evaluated by neurology who recommended that the patient continue with aspirin and also start Plavix. Patient was continued on his home Alzheimer's medications of donepezil and Namenda. Patient also was continued on his Keppra for seizure disorder. Patient was continued on Zoloft during the admission for his depression. Patient was evaluated by physical therapy and was found to be a candidate for rehabilitation. A facility was found for the patient to [facility] which was amenable to the patient's which we spoke with. Patient was seen and examined today and was doing well. Patient was found to be in a stable condition for discharge. Patient was given clear instructions to follow-up with his primary medical doctor once he is discharged from the rehabilitation center. All questions welcomed and answered to satisfaction of the patient as well as the . - Date & Time of H&P Date of H&P: 10/22/18 Time of H&P: 16:00 Discharge Exam - Head Exam Head Exam: ATRAUMATIC, NORMOCEPHALIC - Eye Exam Additional comments: EOMI. absent: Scleral icterus - ENT Exam ENT Exam: Mucous Membranes Moist - Respiratory Exam Respiratory Exam: absent: Rales, Rhonchi, Wheezes - Cardiovascular Exam Cardiovascular Exam: +S1, +S2. absent: Gallop, Rubs - GI/Abdominal Exam GI & Abdominal Exam: Soft, Normal Bowel Sounds. absent: Distended, Tenderness - Neurological Exam Neurological Exam: Alert, Awake Additional comments: oriented to self and place, not time, residual TAURUS weakness with L cage unloader 4/5, BI 4+/5, TRI 4-/5, DELT 4/5, mild left facial droop noted - Skin Skin Exam: Dry, Warm Discharge Plan - Follow Up Plan Condition: FAIR Disposition: REHAB FACILITY/REHAB UNIT Patient education suggested?: Yes Instructions: Stroke (DC) Additional Instructions: FOLLOW FACILITY PROTOCOL. REHAB NECESSARY. ANY FALLS, FACIAL DROOP, INCREASE IN WEAKNESS REPORT TO MD AND GO TO ER. <Kenji Francis - Last Filed: 10/22/18 18:09> Provider - Provider Date of Admission: 10/19/18 19:03 Attending physician: Kenji Francis MD Consults: 10/19/18 19:04 Consult [Physician Consult] Routine Comment: Consulting Provider: Ian Ch Consulting Physician: Ian Ch Reason for Consult: CVA 10/19/18 19:26 Physician Consult Routine Comment: Consulting Provider: Trey Ch Consulting Physician: Trey Ch Reason for Consult: CVA 10/19/18 20:46 Case Management Referral Routine Comment: NEEDS ASSISTANCE AT HOME Physician Instructions: Reason For Exam: EVALUATION Reason for Referral: Sand Bobber Eval Nursing Referral for Wound Care Routine Comment: AT RISK FOR SKIN BREAKDOWN. Physician Instructions: Reason For Exam: EVALUATION 10/19/18 20:57 Nursing Referral for Palliative Care Routine Comment: Physician Instructions: Reason For Exam: EVALUATION Social Work Referral Routine Comment: NEEDS ASSISTANCE AT HOME Physician Instructions: Reason For Exam: EVALUATION Hospital Course - Lab Results Lab Results: Micro Results 10/19/18 11:38 Blood-Venous Blood Culture - Preliminary NO GROWTH AFTER 3 DAYS 10/19/18 11:00 Blood-Venous Blood Culture - Preliminary NO GROWTH AFTER 3 DAYS 10/19/18 12:40 Urine,Catheterized Urine Culture - Final No Growth (<1,000 CFU/ML) Most Recent Lab Values WBC 10.9 10^3/uL (4.5-11.0) 10/20/18 07:00 RBC 4.44 10^6/uL (3.5-6.1) 10/20/18 07:00 Hgb 13.0 g/dL (14.0-18.0) L 10/20/18 07:00 Hct 40.1 % (42.0-52.0) L 10/20/18 07:00 MCV 90.3 fl (80.0-105.0) 10/20/18 07:00 MCH 29.3 pg (25.0-35.0) 10/20/18 07:00 MCHC 32.4 g/dl (31.0-37.0) 10/20/18 07:00 RDW 13.3 % (11.5-14.5) 10/20/18 07:00 Plt Count 196 10^3/uL (120.0-450.0) 10/20/18 07:00 MPV 8.1 fl (7.0-11.0) 10/20/18 07:00 Neut % (Auto) 79.7 % (50.0-68.0) H 10/19/18 11:00 Lymph % (Auto) 11.4 % (22.0-35.0) L 10/19/18 11:00 Hickman % (Auto) 8.4 % (1.0-6.0) H 10/19/18 11:00 Eos % (Auto) 0.3 % (1.5-5.0) L 10/19/18 11:00 Baso % (Auto) 0.2 % (0.0-3.0) 10/19/18 11:00 Lymph # (Auto) 1.5 (1.2-3.4) 10/19/18 11:00 Hickman # (Auto) 1.1 (0.1-0.6) H 10/19/18 11:00 Eos # (Auto) 0.0 (0.0-0.7) 10/19/18 11:00 Baso # (Auto) 0.02 K/mm3 (0.0-2.0) 10/19/18 11:00 Absolute Neuts (auto) 10.14 (1.4-6.5) H 10/19/18 11:00 PT 14.5 SECONDS (9.4-12.5) H 10/19/18 11:00 INR 1.28 10/19/18 11:00 APTT 25.4 Seconds (26.9-38.3) L 10/19/18 11:00 pO2 149 mm/Hg (30-55) H 10/19/18 11:20 VBG pH 7.36 (7.32-7.43) 10/19/18 11:20 VBG pCO2 45.0 (40-60) 10/19/18 11:20 VBG HCO3 25.4 mmol/l (21-28) 10/19/18 11:20 VBG Total CO2 26.8 mmol.L (22-28) 10/19/18 11:20 VBG O2 Sat (Calc) 100.0 % (40-65) H 10/19/18 11:20 VBG Base Excess -0.4 mmol/L (0.0-2.0) L 10/19/18 11:20 VBG Potassium 5.9 mmol/L (3.6-5.2) H 10/19/18 11:20 Sodium 138.0 mmol/L (132-148) 10/19/18 11:20 Chloride 98.0 mmol/L (98-107) 10/19/18 11:20 Glucose 101 mg/dl (75-110) 10/19/18 11:20 Lactate 1.8 mmol/L (0.7-2.1) 10/19/18 11:20 FiO2 21.0 % 10/19/18 11:20 Sodium 138 mmol/L (132-148) 10/20/18 07:00 Potassium 3.8 mmol/L (3.6-5.0) 10/20/18 07:00 Chloride 103 mmol/L (98-107) 10/20/18 07:00 Carbon Dioxide 26 mmol/L (21-33) 10/20/18 07:00 Anion Gap 13 (10-20) 10/20/18 07:00 BUN 24 mg/dL (7-21) H 10/20/18 07:00 Creatinine 1.0 mg/dl (0.8-1.5) 10/20/18 07:00 Est GFR ( Amer) > 60 10/20/18 07:00 Est GFR (Non-Af Amer) > 60 10/20/18 07:00 Random Glucose 94 mg/dL (70-110) 10/20/18 07:00 Calcium 9.2 mg/dL (8.4-10.5) 10/20/18 07:00 Phosphorus 4.0 mg/dL (2.5-4.5) 10/19/18 12:41 Magnesium 2.2 mg/dL (1.7-2.2) 10/19/18 12:41 Total Bilirubin 0.7 mg/dL (0.2-1.3) 10/20/18 07:00 AST 23 U/L (17-59) 10/20/18 07:00 ALT < 6 U/L (7-56) L 10/20/18 07:00 Alkaline Phosphatase 84 U/L (38-126) 10/20/18 07:00 Lactate Dehydrogenase 379 U/L (333-699) 10/19/18 12:41 Total Creatine Kinase < 20 U/L (35-230) L 10/19/18 12:41 Troponin I < 0.01 ng/mL 10/19/18 12:41 Total Protein 7.1 g/dL (5.8-8.3) 10/20/18 07:00 Albumin 3.5 g/dL (3.0-4.8) 10/20/18 07:00 Globulin 3.6 gm/dL 10/20/18 07:00 Albumin/Globulin Ratio 1.0 (1.1-1.8) L 10/20/18 07:00 Triglycerides 112 mg/dL (35-160) 10/20/18 07:00 Cholesterol 189 mg/dL (130-200) 10/20/18 07:00 LDL Cholesterol Direct 115 mg/dL (0-129) 10/20/18 07:00 HDL Cholesterol 33 mg/dL (29-60) 10/20/18 07:00 Venous Blood Potassium 5.9 mmol/L (3.6-5.2) H 10/19/18 11:20 Urine Color Yellow (YELLOW) 10/19/18 12:40 Urine Appearance Clear (CLEAR) 10/19/18 12:40 Urine pH 6.0 (4.7-8.0) 10/19/18 12:40 Ur Specific [place] >= 1.030 (1.005-1.035) 10/19/18 12:40 Urine Protein 30 mg/dL (<30 mg/dL) H 10/19/18 12:40 Urine Glucose (UA) Negative mg/dL (NEGATIVE) 10/19/18 12:40 Urine Ketones 15 mg/dL (NEGATIVE) H 10/19/18 12:40 Urine Blood Large (NEGATIVE) H 10/19/18 12:40 Urine Nitrate Negative (NEGATIVE) 10/19/18 12:40 Urine Bilirubin Small (NEGATIVE) H 10/19/18 12:40 Urine Urobilinogen 1.0 E.U./dL (<1 E.U./dL) H 10/19/18 12:40 Ur Leukocyte Esterase Negative [place]/uL (NEGATIVE) 10/19/18 12:40 Urine RBC Tntc /hpf (0-2) H 10/19/18 12:40 Urine WBC 0 - 2 /hpf (0-6) 10/19/18 12:40 Ur Epithelial Cells 0 - 2 /hpf (0-5) 10/19/18 12:40 Urine Bacteria Small /hpf (NONE) 10/19/18 12:40 - Hospital Course Hospital Course: Pt seen and examined by me. I have reviewed the note of the medical hospital sales and I agree with it. I have discussed the assessment and plan with the resident. I have reviewed the medications and the last labs.
--- NOTE | 2018-10-23 02:53 | DS ---
HOSPITAL COURSE: The patient was seen and examined. I do agree with the note of the emergency medical tech. I was involved in the plan of care. The patient is being discharged to acute rehab. He had come into the hospital and was found to have left-sided weakness due to an acute CVA in the parietal lobe. The patient is on donepezil and Namenda for his Alzheimer's dementia. He is on Keppra for seizure disorder. He is going to continue with Zoloft for his depression. He denies any pain. He has been eating well. The patient's family was updated on the patient's diagnosis and plan of care. Kenji Francis MD
== END 2018-10-22 16:43 | DRG 65 ==
LOC: ED 10:20 → ERH 13:43 → 2RNO 15:40 → OBSVTOIN 19:03 → 3RSO 10-21 12:17
PROVIDERS: ADMIT Internal Medicine Nephrology; ATTEND Internal Medicine Nephrology
DX: I63.511 Cerebral infarction due to unspecified occlusion or stenosis of right middle cerebral artery (principal); G81.94 Hemiplegia, unspecified affecting left nondominant side; I13.0 Hypertensive heart and chronic kidney disease with heart failure and stage 1 through stage 4 chronic kidney disease, or unspecified chronic kidney disease; F02.80 Dementia in other diseases classified elsewhere, unspecified severity, without behavioral disturbance, psychotic disturbance, mood disturbance, and anxiety; R29.6 Repeated falls; R26.81 Unsteadiness on feet; Z85.038 Personal history of other malignant neoplasm of large intestine; Z95.0 Presence of cardiac pacemaker; Z86.73 Personal history of transient ischemic attack (TIA), and cerebral infarction without residual deficits; G40.909 Epilepsy, unspecified, not intractable, without status epilepticus; N18.3 Chronic kidney disease, stage 3 (moderate); G30.9 Alzheimer's disease, unspecified; I25.10 Atherosclerotic heart disease of native coronary artery without angina pectoris; I73.9 Peripheral vascular disease, unspecified; F32.89 Other specified depressive episodes; H40.9 Unspecified glaucoma; H54.7 Unspecified visual loss; H91.90 Unspecified hearing loss, unspecified ear; Z66 Do not resuscitate; Z79.82 Long term (current) use of aspirin; Z90.49 Acquired absence of other specified parts of digestive tract; Z97.4 Presence of external hearing-aid